=== PATIENT | female | born 1945 | race Caucasian/White ===

== ENCOUNTER → 2017-10-23 | Outpatient (CLI) | payer OTHER, MEDICARE ==
--- NOTE | 2017-10-23 16:32 | DIAGNOSTIC IMAGING REPORT ---
LEFT KNEE MRI HISTORY: LEFT KNEE PAIN COMPARISON STUDY: None. TECHNIQUE: Multiplanar multisequence MRI of the left knee was performed according to standard department protocol without the use of contrast. FINDINGS: Menisci: Best seen on coronal image 17 there is a small horizontal tear at the posterior root of the lateral meniscus. The medial meniscus is slightly extruded from the joint space and there is an oblique tear extending to the undersurface of the body and posterior horn. There is also complex tear at the posterior meniscal root of the medial meniscus. Ligaments: The ACL, PCL, MCL are intact. There is increased signal in thickening within the proximal LCL. No surrounding edema. This may represent an old partial tear. Extensor mechanism: The quadriceps tendon and patellar ligament are intact. Articular cartilage and bone: No fracture or dislocation. Marrow edema at the medial femoral condyle and a small amount of marrow edema at the medial tibial plateau. Mild cartilage thinning within the central weightbearing portions of the medial femoral condyle and medial tibial plateau. There is also fissures, fraying, and thinning within the patellar cartilage. Joint effusion: Small. Soft tissues: 5.3 x 2.5 x 1.1 cm popliteal cyst. Multiple varicosities seen within the knee. Mild subcutaneous edema throughout the knee. IMPRESSION: 1. Bilateral meniscal tears as described above. 2. Small joint effusion. 3. Suspect an old partial tear of the proximal LCL. 4. Marrow edema within the medial femoral condyle and medial tibial plateau which may be due to the degenerative change. 5. Additional findings as described above. Electronically signed by: Yoni Shaffer M.D. 10/23/2017 4:31 PM Dictated Date/Time: 10/23/2017 4:24 PM
== END | disposition home or self-care (01) ==
LOC: C.ULTRBC 14:56
PROVIDERS: ATTEND Family Medicine
DX: I83.899 Varicose veins of unspecified lower extremity with other complications (principal); R60.0 Localized edema; M25.562 Pain in left knee

== ENCOUNTER 2023-03-15 08:32 | Inpatient (IN) ==
--- NOTE | 2023-03-15 09:11 | Emergency Department Note ---
ED Provider Note History of Present Illness Chief Complaint: Leg Injury/Pain Stated Complaint: LEFT LEG PAIN Time Seen by Provider: 03/15/23 08:48 Source: patient and family ( - Charlie) Mode of arrival: ambulatory Limitations: no limitations This patient is a 77-year-old female who presents to the emergency department accompanied by her for evaluation of left leg pain. Patient has a long history of varicosities and has had multiple treatments for these, most recently she has seen a vein specialist in [place] where she spends the winter. Patient states that over the past few days the pain in her left leg has flared up. This does tend to happen with weather changes. She takes Tylenol and ibuprofen with some relief. No recent long travel, patient has been on estrogen replacement in the past but is no longer. She does not smoke. She has no history of DVT or PE. Patient does note some left-sided chest pain and states she has had this frequently in the past and was told it was muscular. It does tend to happen after too much activity and she admits she was picking up her great grandchildren a few days ago. Pain has been ongoing for the past few days. She denies any shortness of breath or fevers. Home Medications Medication Instructions Recorded Confirmed Type Prevagen 1 tab PO QAM 05/25/20 03/15/23 History amlodipine 2.5 mg tablet 2.5 mg PO PM 05/25/20 03/15/23 History metoprolol succinate 50 mg 50 mg PO PM 05/25/20 03/15/23 History tablet,extended release 24 hr Allergies Allergy/AdvReac Type Severity Reaction Status Date / Time No Known Allergies Allergy Mild Unverified 05/25/20 12:02 Past Med/Surg History Medical History (Updated 03/15/23 @ 16:29 by Kristin Amaro PA-C) Anxiety Dementia Diverticulosis Hypertension Left leg pain Osteoporosis Senile degeneration of brain Skin cancer ST segment depression 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 Social History Smoking Status: Never smoker Hx Alcohol Use: No Hx Substance Use: No Preferred Language: Czech Communication Ability: Effective 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 Beliefs That Will Affect Care: Judaism Current Living Situation: Spouse Other Information That Helps Us Care for You: No Feels Safe at Home: Yes Safety Concerns: Feels Safe At This Time Assistive Devices: Glasses Physical Exam Vital Signs Vital Signs - 24 hr 03/15/23 08:44 03/15/23 10:00 Temperature 36.4 C L Temperature Source Temporal Artery Scan Pulse Rate 81 Pulse Rate [Right Finger] 75 Pulse Rhythm [Right Finger] Regular Pulse Strength [Right Finger] Normal Respiratory Rate 18 18 Respiratory Effort / Characteristics Non-Labored Non-Labored Respiratory Depth Normal Normal Respiratory Pattern Regular Blood Pressure 133/83 Blood Pressure [Right Arm] 146/79 H Blood Pressure Mean 99 Blood Pressure Mean [Right Arm] 101 Blood Pressure Position Sitting Pulse Oximetry 97 98 Oxygen Delivery Method Room Air Room Air Sepsis Recent Fever Within 48 Hours No Sepsis New/Unexplained Change in Mental Status No Sepsis Action Taken by Nursing No Action Required VITALS: Vitals are noted on the nurse's note and reviewed by myself. GENERAL: This is a 77-year-old female, in no acute distress, well-developed well-nourished. EYES: Pupils equal round and reactive to light and accommodation. MOUTH: Mucous membranes moist. Tonsils are not enlarged. Pharynx without erythema or exudate. NECK: Supple without nuchal rigidity. HEART: Regular rate and rhythm without murmurs gallops or rubs. LUNGS: Clear to auscultation bilaterally without wheezes, rales or rhonchi. No retractions or accessory muscle use. ABDOMEN: Positive bowel sounds x 4. Soft, nontender to palpation. MUSCULOSKELETAL: Several small scars noted to the left lower extremity. There is tenderness to palpation of the left calf without obvious edema, erythema or palpable cord. NEURO: Patient was alert and oriented to person place and time. Distal sensation intact. Course Administered Medications Discontinued Medications Acetaminophen (Acetaminophen 500 Mg Tab) 1,000 mg PO NOW STA Stop: 03/15/23 09:51 Last Admin: 03/15/23 10:38 Dose: 1,000 mg Documented By: AP Medical Decision Making Differential Diagnosis DVT, musculoskeletal, infection, joint effusion, trauma, lymphedema, idiopathic, CHF, as well as other pathologies. Home Medications was personally reviewed by me Laboratory Data Attestation: I reviewed the patient's lab results. 03/15/23 09:20 03/15/23 09:20 Lab Results 03/15/23 03/15/23 Range/Units 09:20 09:20 WBC 4.78 L (4.8-10.8) K/ul RBC 3.60 L (4.20-5.40) M/uL Hgb 12.1 (12.0-16.0) g/dl Hct 36.3 L (37.0-47.0) % MCV 100.8 H (80.0-100.0) fL MCH 33.6 (25.0-34.0) pg MCHC 33.3 (32.0-36.0) g/dL RDW Std Deviation 52.1 H (36.4-46.3) fL RDW Coeff of Yoav 14.0 (11.5-14.5) % Plt Count 196 (130-400) K/uL MPV 10.3 (9.4-12.4) fL Immature Gran % (Auto) 0.2 % Neut % (Auto) 58.4 % Lymph % (Auto) 26.4 % [place] % (Auto) 11.5 % Eos % (Auto) 2.7 % Baso % (Auto) 0.8 % Neut # (Auto) 2.79 (1.40-6.50) K/uL Lymph # (Auto) 1.26 (1.2-3.4) K/uL [place] # (Auto) 0.55 (0.11-0.59) K/uL Eos # (Auto) 0.13 (0-0.50) K/uL Baso # (Auto) 0.04 (0-0.2) K/uL Immature Gran # (Auto) 0.01 (0.01-0.20) K/uL Sodium 138 (136-145) mmol/L Potassium 4.5 (3.5-5.1) mmol/L Chloride 104 (98-107) mmol/L Carbon Dioxide 28 (21-32) mmol/L Anion Gap 6 (3-11) BUN 17 (6-23) mg/dl Creatinine 1.00 (0.6-1.2) mg/dl Est Cr Clr Drug Dosing 36.4 ml/min Est GFR ( Amer) 62.9 ml/min Est GFR (Non-Af Amer) 54.3 ml/min BUN/Creatinine Ratio 17.0 (10-20) Glucose 95 (70-99(Fasting)) mg/dl Calcium 9.6 (8.6-10.3) mg/dl Total Bilirubin 0.5 (0.2-1.0) mg/dl AST 20 (13-39) U/L ALT 11 (7-52) U/L Alkaline Phosphatase 74 (34-104) U/L Troponin I High Sens 5.6 (0-14) pg/ml Total Protein 7.4 (6.0-8.3) gm/dl Albumin 4.2 (3.4-5.0) gm/dl Globulin 3.2 (2.5-4.0) gm/dl Albumin/Globulin Ratio 1.3 (0.9-2) Imaging Data Attestation: I personally reviewed and interpreted this imaging study as follows: Radiologist's Impression: Venous Doppler Study 03/15/23 09:04 LEFT LOWER EXTREMITY VENOUS DOPPLER HISTORY: Acute left leg pain left leg pain, hx varicosities COMPARISON STUDY: 06/01/2022 FINDINGS: There is normal compressibility, flow, and augmentation within the left lower extremity deep venous system. Limited exam secondary to lack of patient cooperation. Nonvisualization of the greater saphenous vein. IMPRESSION: No DVT within the left lower extremity. ACT 112: Negative or not required by law. Electronically signed by: Neri Chaudhary M.D. 03/15/2023 11:57 AM Chest X-Ray 03/15/23 09:05 XR chest 1V portable CLINICAL HISTORY: Atypical chest pain. COMPARISON STUDY: Chest radiograph May 25, 2020. FINDINGS: Lung volumes are normal. Lungs are clear. There is no pneumothorax or pleural effusion. Cardiac size is normal. Mediastinal contours are normal. There is no evidence for pulmonary edema. Several old left rib fractures are incident ally noted. IMPRESSION: No acute cardiopulmonary findings. ACT 112: Negative or not required by law. Electronically signed by: Frank Gardner M.D. 03/15/2023 9:53 AM ECG Data Attestation: I personally reviewed and interpreted this ECG as follows: Indication: + chest pain Rate (beats per minute): 69 Rhythm: + sinus rhythm ECG Intervals/blocks: + Left bundle branch block ECG [place]: + Left axis deviation ECG ST segments: + ST depression (lateral leads) Change: the following changes noted (worsening st depression lateral leads) MDM Narrative The patient is a 77-year-old female who presents today complaining of left leg pain and chest pain. Patient does have some dementia and it is unclear how acute these problems are. Ultrasound of the leg reveals no DVT. Labs revealed no leukocytosis, anemia or concerning electrolyte abnormalities. Troponin was not elevated. EKG was performed and does show ST depressions in the lateral lead which appear to be worse from a prior EKG. Troponin is not elevated. I did consult cardiology, who recommended observation for cardiac rule out given EKG changes. Patient was admitted to the [facility] service for further care. Impression Chest pain, Left leg pain, Abnormal EKG Discharge Plan Visit Data Chief Complaint: Leg Injury/Pain Stated Complaint: LEFT LEG PAIN ED Provider: Roberto Parmar ED Midlevel Provider: Kristin Amaro Discharge Problem: Chest pain, Left leg pain, Abnormal EKG Patient Disposition: Admitted As Inpatient Discharge Instructions Interventions: ED Discharge Assessment Last Done: 03/15/23 15:22
[2023-03-15 09:44] LABS: Basophils # (auto) 0.04 K/uL (0-0.2); Basophils % (auto) 0.8 %; Eosinophils # (auto) 0.13 K/uL (0-0.50); Eosinophils % (auto) 2.7 %; Hematocrit (blood only) 36.3 % (37.0-47.0); Hemoglobin 12.1 g/dl (12.0-16.0); Immature Granulocytes # (auto) 0.01 K/uL (0.01-0.20); Immature Granulocytes % (auto) 0.2 %; Lymphocytes # (auto) 1.26 K/uL (1.2-3.4); Lymphocytes % (auto) 26.4 %; Mean Corpuscular Hemoglobin 33.6 pg (25.0-34.0); Mean Corpuscular Hgb Conc 33.3 g/dL (32.0-36.0); Mean Corpuscular Volume 100.8 fL (80.0-100.0); Mean Platelet Volume 10.3 fL (9.4-12.4); Monocytes # (auto) 0.55 K/uL (0.11-0.59); Monocytes % (auto) 11.5 %; Neutrophils # (auto) 2.79 K/uL (1.40-6.50); Neutrophils % (auto) 58.4 %; Platelet Count 196 K/uL (130-400); RDW Standard Deviation 52.1 fL (36.4-46.3); White Blood Count 4.78 K/ul (4.8-10.8)
[2023-03-15] MEDS ORDERED: ACETAMINOPHEN 500 MG TAB PO STA (09:50)
--- NOTE | 2023-03-15 09:54 | XRay Report ---
XR chest 1V portable CLINICAL HISTORY: Atypical chest pain. COMPARISON STUDY: Chest radiograph May 25, 2020. FINDINGS: Lung volumes are normal. Lungs are clear. There is no pneumothorax or pleural effusion. Car diac size is normal. Mediastinal contours are normal. There is no evidence for pulmonary edema. Sever al old left rib fractures are incidentally noted. IMPRESSION: No acute cardiopulmonary findings. ACT 112: Negative or not required by law. Electronically signed by: Frank Gardner M.D. 03/15/2023 9:53 AM
[2023-03-15 09:59] LABS: Albumin Globulin Ratio 1.3 (0.9-2); Albumin Level 4.2 gm/dl (3.4-5.0); Bilirubin,Total 0.5 mg/dl (0.2-1.0); Calcium 9.6 mg/dl (8.6-10.3); Creatinine Clr Calc Pharmacy 36.4 ml/min; Est GFR (African American) 62.9 ml/min; Est GFR (Non-African American) 54.3 ml/min; Globulin 3.2 gm/dl (2.5-4.0); Potassium 4.5 mmol/L (3.5-5.1); Total Protein 7.4 gm/dl (6.0-8.3)
[2023-03-15 10:05] LABS: Troponin I High Sensitivity 5.6 pg/ml (0-14)
--- NOTE | 2023-03-15 11:58 | Ultrasound Report ---
LEFT LOWER EXTREMITY VENOUS DOPPLER HISTORY: Acute left leg pain left leg pain, hx varicosities COMPARISON STUDY: 06/01/2022 FINDINGS: There is normal compressibility, flow, and augmentation within the left lower extremity [place] p venous system. Limited exam secondary to lack of patient cooperation. Nonvisualization of the great er saphenous vein. IMPRESSION: No DVT within the left lower extremity. ACT 112: Negative or not required by law. Electronically signed by: Neri Chaudhary M.D. 03/15/2023 11:57 AM
[2023-03-15] MEDS ORDERED: MAGNESIUM HYDROXIDE SUSP 30 ML UDC PO PRN (13:56)
[2023-03-15] MEDS ORDERED: ONDANSETRON INJ 2 MG/ML 2 ML VIAL IV PRN (13:56)
--- NOTE | 2023-03-15 14:13 | History & Physical Report ---
Date of Service March 15, 2023 Assessment & Plan (1) Left leg pain: (2) Varicosities of leg: (3) ST segment depression: (4) Hypertension: (5) Anxiety: (6) Dementia: Plan 77 year old presents with Left leg pain. H/O Varicosities. Venous Doppler negative for DVT. Incidentally, new lateral and inferior ST depression noted on ECG as compared to previous study a few years back. Hemodynamically stable. Labs unremarkable. Trop negative. [place] spends half of the year in [place]; no ECHO on file. Will obtain ECHO for additional cardiology work up. Left leg pain: Varicosities of leg: Long standing history of varicosities with Ligation in past in [place]. Follows with Vein Specialist in [place] Venous Doppler negative for DVT of left lower extremity Non-toxic Weight bearing; PT/OT ECG ST Depression: Incidental finding on arrival to ED in Lateral leads Change from ECG from 2019 Troponin negative Obtain ECHO; no ECHO in EMR Link Lipid panel in AM Check Mg+ Labs otherwise unremarkable Repeat ECG in AM or PRN with symptoms Cards Consult for input Hypertension: Takes Amlodipine and Metoprolol;continue Moderate Dementia: Unsure Alzheimer's or Vascular Fast score: up to and including 5 Takes Prevagen; hold while here. Per , appears to be progressively worsening Disposition: PCP Dr. Cadet CODE STATUS: Full code VTE prophylaxis: Lovenox SQ I spent a total of 88 minutes coordinating, documenting, and providing care for this patient excluding time spent in the performance of separately billed services. All of the aforementioned completed while collaborating with the assigned attending physician for a full treatment plan. Please see their addendum for further details. History of Present Illness Chief Complaint: Left leg pain Primary Care Provider: Dr. Cadet Ms. Galvez is a 77-year-old female that presented to the [facility] ED today with complaints of left leg pain. Patient reports she follows with a vein specialist in [place] where she omer for a longstanding chronic history of varicosities. Reports having multiple treatments for this. Over the past few days her leg pain has worsened with minimal relief with OTC medications. ECG incidentally identified new lateral wall ST depression. No chest pain or palpitations noted. New finidings compared to previous ECG from a few years ago. Venous Doppler ultrasound of LLE without DVT within the left lower extremity. CXR negative for acute cardiopulmonary findings. Pt indicates that she has had a cardiac work up in [place] and was told everything was negative. She also had a mammogram and sonogram and was identified as muscular pain. No history of DVT or PE and no recent travel. CBC and BMP unremarkable, no transaminases, Troponin negative. No UTI via UA. Hemodynamically stable on room air. Other past medical history includes hypertension (Takes Amlodipine and Metoprolol) and dementia. Patient denies headache, dizziness, visual or auditory changes, shortness of breath, fevers or chills, abdominal pain, nausea, vomiting, diarrhea, urinary changes, recent falls or trauma. Patient will be admitted for further evaluation and management. Please see A/P for further details. Allergies Allergy/AdvReac Type Severity Reaction Status Date / Time No Known Allergies Allergy Mild Unverified 05/25/20 12:02 Home Medications Medication Instructions Recorded Confirmed Type Prevagen 1 tab PO QAM 05/25/20 03/15/23 History amlodipine 2.5 mg tablet 2.5 mg PO PM 05/25/20 03/15/23 History metoprolol succinate 50 mg 50 mg PO PM 05/25/20 03/15/23 History tablet,extended release 24 hr Past Med/Surg History Medical History (Updated 03/15/23 @ 16:45 by Roscoe Solano DO) Anxiety Dementia Diverticulosis Hypertension Left leg pain Osteoporosis Senile degeneration of brain Skin cancer ST segment depression 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 Social History Smoking Status: Never smoker Hx Alcohol Use: No Hx Substance Use: No Preferred Language: Sami Communication Ability: Effective Digital Performance Analyst Required: No Beliefs That Will Affect Care: Buddhist Current Living Situation: Spouse Other Information That Helps Us Care for You: No Feels Safe at Home: Yes Safety Concerns: Feels Safe At This Time Assistive Devices: Glasses Review of Systems Review of Systems: Neuro: (-) Falls, trauma, slurred speech HEENT: (-) MOORE, dizziness, dysphagia, visual or auditory changes CV: (-) CP, palpitations, swelling Resp: (-) SOB GI: (-) appetite changes, N/V/D, bowel changes (+) abdominal pain; generalized : (-) urinary changes Skin: (-) rashes Psych: (-) anxiety, depression Physical Exam Physical Exam: See Dr Corcoran's addendum for physical examination Results & Data Results & Data Vital Signs (Past 12 Hours) Vital Signs Temp Pulse Pulse Resp BP BP Pulse Ox 03/15/23 10:00 75 18 146/79 H 98 03/15/23 08:44 36.4 C L 81 18 133/83 97 O2 Del Method 03/15/23 10:00 Room Air 03/15/23 08:44 Room Air Laboratory Results Short CBC 03/15/23 Range/Units 09:20 WBC 4.78 L (4.8-10.8) K/ul Hgb 12.1 (12.0-16.0) g/dl Hct 36.3 L (37.0-47.0) % Plt Count 196 (130-400) K/uL BMP 03/15/23 09:20 Sodium 138 Potassium 4.5 Chloride 104 Carbon Dioxide 28 BUN 17 Creatinine 1.00 Glucose 95 Calcium 9.6 Liver Function 03/15/23 Range/Units 09:20 Total Bilirubin 0.5 (0.2-1.0) mg/dl AST 20 (13-39) U/L ALT 11 (7-52) U/L Alkaline Phosphatase 74 (34-104) U/L Albumin 4.2 (3.4-5.0) gm/dl Diagnostic Findings Venous Doppler Study 03/15/23 09:04 LEFT LOWER EXTREMITY VENOUS DOPPLER HISTORY: Acute left leg pain left leg pain, hx varicosities COMPARISON STUDY: 06/01/2022 FINDINGS: There is normal compressibility, flow, and augmentation within the left lower extremity deep venous system. Limited exam secondary to lack of patient cooperation. Nonvisualization of the greater saphenous vein. IMPRESSION: No DVT within the left lower extremity. ACT 112: Negative or not required by law. Electronically signed by: Neri Chaudhary M.D. 03/15/2023 11:57 AM Chest X-Ray 03/15/23 09:05 XR chest 1V portable CLINICAL HISTORY: Atypical chest pain. COMPARISON STUDY: Chest radiograph May 25, 2020. FINDINGS: Lung volumes are normal. Lungs are clear. There is no pneumothorax or pleural effusion. Cardiac size is normal. Mediastinal contours are normal. There is no evidence for pulmonary edema. Several old left rib fractures are incidentally noted. IMPRESSION: No acute cardiopulmonary findings. ACT 112: Negative or not required by law. Electronically signed by: Frank Gardner M.D. 03/15/2023 9:53 AM Code Status & VTE Plan VTE Prophylaxis Plan VTE Prophylaxis will be ordered: Yes Supervising Physician Co-Signing Physician Notes Ms. Galvez is a 77 year old female with pmhx (per chart, confirmed with ) of varicose veins, dementia, HTN, skin ca, osteoporosis, and anxiety. She presented d/t severe pain involving the left side. Here she was found to have ST depression on EKG. Per at bedside the patient has a lot of chronic pain affecting various areas of her body. Her legs are typically problematic d/t varicose veins. She has been treated with vein stripping and sclerotherapy. On the day prior to presentation she was complaining of pain involving the left side of her body including the entire lower extremity, abdomen, flank, chest, and upper extremity. Pt denies any recent illness, f/c/n/v, cough, cold, congestion, sob, and diarrhea. Her has not appreciated any change in appetite (has never been good), behavioral changes, change in energy level or ability to perform ADLs. Her states breast/chest pain has previously been determined to be muscular based on mammogram and US. He also states at some point in the past few years she had a negative cardiac workup in [place]. We explained to him and the patient that d/t the incidental finding of ST depression on EKG we feel she would benefit from a cardiac workup (things can change in a few years) and from seeing a linux systems analyst. # abnormal EKG: new when compared to prior EKG f/u echo, serial troponin (initial trop wnl) repeat EKG in am f/u lipid panel cardiology consulted, appreciate input, will defer further w/u to cardiology # Left sided pain: particularly affects the leg analgesia, PT/OT # HTN: suboptimally controlled likely pain and anxiety mediated continue amlodpine 2.5 mg po daily, metoprolol 50 mg po daily # anxiety: avoid benzos in elderly pt with dementia provide supportive care # dementia: continue supportive care, reoorient as needed primary team can offer trial of memantine or a cholinesterase inhibitor (donepezil, Galantamine, Rivastigmine) after discussing risks/benefits PE General: NAD, well nourished, non-toxic appearing Head: NC AT Eyes: anicteric sclera, no conjunctival injection Nose: normal, nares patent Mouth: MMM Neck: supple, trachea midline CV: RRR S1 S2 Pulm: CTA b/l Abd/GI: + BS, soft, NT, ND, no guarding Ext: mild b/l LE edema (baseline) MSK: normal bulk and tone Neuro: alert, moving all 4 extremities symmetrically Psych: pleasant mood and affect Skin: visible skin is warm, dry, and without rash. Pt not fully undressed for exam. Rest per attested note above (4) Hypertension Hypertension type: unspecified Qualified Code(s): I10 - Essential (primary) hypertension
--- NOTE | 2023-03-15 15:31 | Electrocardiogram Report ---
Test Reason : Blood Pressure : / mmHG Vent. Rate : 069 BPM Atrial Rate : 069 BPM P-R Int : 140 ms QRS Dur : 130 ms QT Int : 470 ms P-R-T Axes : 054 -54 080 degrees QTc Int : 503 ms Normal sinus rhythm Left axis deviation Left bundle branch block Abnormal ECG When compared with ECG of 25-MAY-2020 11:44, Nonspecific T wave abnormality now evident in Inferior leads Nonspecific T wave abnormality, worse in Lateral leads Confirmed by Albert Strong ([id number]) on 03/15/2023 3:31:11 PM Referred By: REFERRED SELF Confirmed By:Albert Strong
--- NOTE | 2023-03-15 16:46 | Cardiology Consultation ---
Date of Consultation March 15, 2023 Assessment & Plan (1) Chest pain: (2) LBBB (left bundle branch block): (3) Pericardial effusion: (4) Cardiomyopathy: Plan 77-year-old female presents emergency department with left leg discomfort with radiation to her left abdominal region and left chest. Discomfort somewhat reproducible with palpation. Initial cardiac enzymes undetectable despite 3 days of discomfort. Resting 2D transthoracic echocardiogram demonstrated trivial anterior loculated pericardial effusion without hemodynamic significance. Her left ventricular ejection fraction is mildly reduced most likely due to underlying left bundle branch block. Recommend addition of low- dose angiotensin receptor kayla, losartan 12.5 mg daily. Continue metoprolol succinate 50 mg daily. ECG on admission demonstrates a left bundle branch block. The ST changes are nondiagnostic in the setting of a chronic left bundle branch block. Recommend repeat cardiac enzymes x3 sets due to atypical chest discomfort. Repeat echocardiogram in 2 to 4 weeks for follow-up of trivial pericardial effusion. Assess TSH. History of Present Illness Reason for Consultation: New ST changes on ECG Requesting Physician: Jacklyn KASPER Attending Physician: Rayna Corcoran MD History of Present Illness 77-year-old female present to the emergency department with left leg pain. On review of systems patient also noted left-sided abdominal and chest discomfort. States it feels like the muscle on my left side is sore. Patient is somewhat of a poor historian. Notes hitting her head several months ago while snowboarding in [place]. She is unable to provide details of this injury. Currently denies any headache, focal weakness, or visual changes. Discomfort improved somewhat positionally. Denies exertional chest pain or unusual shortness of breath. Denies any pleuritic discomfort. Preliminary review of bedside 2D transthoracic echocardiogram demonstrates mild reduced LV systolic function with a ejection fraction of 45 to 50%. The septal wall motion is abnormal consistent with left bundle branch block. There is a trivial anterior pericardial effusion. Notes intermittent lower extremity burning attributed to venous insufficiency. Reports multiple venous ablations on the left side. Wears a left-sided compression stocking chronically. Venous duplex negative for DVT. 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 Social History Smoking Status: Never smoker Hx Alcohol Use: No Hx Substance Use: No Preferred Language: Italian Communication Ability: Effective Transitions Rn Care Coordinator Required: No Beliefs That Will Affect Care: Yarsanism Current Living Situation: Spouse Other Information That Helps Us Care for You: No Feels Safe at Home: Yes Safety Concerns: Feels Safe At This Time Assistive Devices: Glasses Review of Systems Review of Systems: All systems reviewed & are unremarkable except as noted in Subjective Physical Exam Constitutional: well nourished; no acute distress Respiratory: normal respiratory effort; no respiratory distress, no labored breathing and no retractions Auscultation: lungs clear to auscultation bilaterally; no crackles, no rales, no rhonchi and no wheezes Cardiovascular: Rate/Rhythm: regular rate and regular rhythm Heart Sounds: normal S1 and normal S2; no murmur Vessels: radial pulses present; no JVD and no carotid bruit Extremities: + edema Results & Data Vital Signs (Past 12 Hours) Vital Signs Temp Pulse Pulse Resp BP BP BP 03/15/23 15:30 36.5 C 73 18 146/71 H 03/15/23 15:13 76 16 159/92 H 03/15/23 10:00 75 18 146/79 H 03/15/23 08:44 36.4 C L 81 18 133/83 Pulse Ox O2 Del Method 03/15/23 15:30 93 Room Air 03/15/23 15:13 96 Room Air 03/15/23 10:00 98 Room Air 03/15/23 08:44 97 Room Air Laboratory Results Cardiac Enzymes 03/15/23 Range/Units 09:20 AST 20 (13-39) U/L Troponin I High Sens 5.6 (0-14) pg/ml CBC 03/15/23 Range/Units 09:20 WBC 4.78 L (4.8-10.8) K/ul RBC 3.60 L (4.20-5.40) M/uL Hgb 12.1 (12.0-16.0) g/dl Hct 36.3 L (37.0-47.0) % Plt Count 196 (130-400) K/uL Neut # (Auto) 2.79 (1.40-6.50) K/uL Lymph # (Auto) 1.26 (1.2-3.4) K/uL [place] # (Auto) 0.55 (0.11-0.59) K/uL Eos # (Auto) 0.13 (0-0.50) K/uL Baso # (Auto) 0.04 (0-0.2) K/uL Comprehensive Metabolic Panel 03/15/23 Range/Units 09:20 Sodium 138 (136-145) mmol/L Potassium 4.5 (3.5-5.1) mmol/L Chloride 104 (98-107) mmol/L Carbon Dioxide 28 (21-32) mmol/L BUN 17 (6-23) mg/dl Creatinine 1.00 (0.6-1.2) mg/dl Glucose 95 (70-99(Fasting)) mg/dl Calcium 9.6 (8.6-10.3) mg/dl AST 20 (13-39) U/L ALT 11 (7-52) U/L Alkaline Phosphatase 74 (34-104) U/L Total Protein 7.4 (6.0-8.3) gm/dl Albumin 4.2 (3.4-5.0) gm/dl Intake and Output 03/15/23 03/15/23 03/15/23 06:59 14:59 22:59 Other: Weight 48.9 kg 48.9 kg Weight Measurement Method Chair Scale Built in [facility] Patient Weight 03/16/23 06:59 Weight 48.9 kg
[2023-03-15] MEDS: LOSARTAN POTASSIUM 25 MG TAB PO SCH (18:08)
[2023-03-15] MEDS: ACETAMINOPHEN 325 MG TAB PO PRN (19:49)
[2023-03-15] MEDS ORDERED: amLODIPine BESYLATE 5 MG TAB PO SCH (21:00)
[2023-03-15] MEDS ORDERED: HEPARIN SOD 5,000 UNIT/0.5 ML VIAL SQ SCH (21:00)
[2023-03-15] MEDS ORDERED: METOPROLOL SUCC 50MG EXT REL TAB PO SCH (21:00)
[2023-03-15] MEDS ORDERED: OPTIRAY 320 100ml IV ONE (22:44)
--- NOTE | 2023-03-15 23:09 | CT Scan Report ---
CT SCAN OF THE ABDOMEN AND PELVIS WITH IV CONTRAST CLINICAL HISTORY: Left lower quadrant abdominal pain. COMPARISON STUDY: Abdominal CT dated 05/30/2021. TECHNIQUE: Following the IV administration of 93 cc of Optiray 320, CT scan of the abdomen and pelvi s is performed from the lung bases to the proximal femora. Images are reviewed in the axial, sagittal , and coronal planes. IV contrast was administered without complication. A dose lowering technique wa s utilized adhering to the principles of ALARA. CT DOSE: 372.78 mGy.cm FINDINGS: Lung bases: The heart is mildly enlarged and without pericardial effusion. There are coronary artery calcifications. The lung bases are clear noting bibasilar scarring/atelectasis. Liver: The contrast-enhanced liver is normal in size, contour, and attenuation. There is no intrahepa tic biliary ductal dilatation. The hepatic veins and portal veins are patent. Gallbladder: Unremarkable. Spleen: Normal in size and attenuation. Pancreas: Unremarkable. Adrenal glands: Unremarkable. Kidneys: The contrast enhanced kidneys are normal in size and without hydronephrosis. The kidneys enh ance symmetrically. Small hepatic cysts measure up to 1.6 cm. Additional subcentimeter cortical hypod ensities also likely represent cysts but are too small for definitive characterization. Abdominal vasculature: The abdominal aorta is normal in course and caliber noting moderate atheroscle rotic calcification. Bowel: There is moderate to advanced colonic diverticulosis without CT evidence of acute diverticulit is. No bowel obstruction is seen. Mild fecal retention is noted throughout the colon. The appendix is well-visualized and normal. Peritoneum: There is no intraperitoneal free air or abdominal ascites. There is a small fat-containin g umbilical hernia. Lymphadenopathy: None. Pelvic viscera: The bladder is mildly distended but otherwise normal in appearance. The uterus and ad nexa are normal as visualized. Skeletal structures: The skeletal structures are osteopenic. There is mild to moderate lumbosacral sp ondylosis. Degenerative change is noted in the sacroiliac joints. No lytic or blastic lesions are see n. IMPRESSION: 1. No acute infectious or inflammatory findings are identified in the abdomen or pelvis. 2. Colonic diverticulosis without CT evidence of acute diverticulitis. 3. Mild bladder distention. 4. Additional findings as above. ACT 112: Negative or not required by law. Electronically signed by: Gabriele Sheets M.D. 03/15/2023 11:06 PM
[2023-03-16] MEDS: ACETAMINOPHEN 325 MG TAB PO PRN ×2 (00:06→09:34)
[2023-03-16 00:35] LABS: Appearance Urine Clear (Clear); Bilirubin Urine Negative (Negative); Blood Urine Negative (Negative); Color Urine Yellow; Glucose Urine UA Negative (Negative); Ketones Urine Negative (Negative); Leukocyte Esterase Urine Negative (Negative); Nitrite Urine Negative (Negative); Protein Urine Negative (Negative); Specific Gravity Urine 1.023 (1.000-1.030); Urobilinogen Urine Negative (Negative); pH Urine 7.5 (4.5-7.5)
[2023-03-16 07:17] LABS: Hematocrit (blood only) 36.3 % (37.0-47.0); Mean Corpuscular Hemoglobin 33.3 pg (25.0-34.0); Mean Corpuscular Hgb Conc 33.1 g/dL (32.0-36.0); Mean Corpuscular Volume 100.8 fL (80.0-100.0); Mean Platelet Volume 10.2 fL (9.4-12.4); Platelet Count 188 K/uL (130-400); RDW Coefficient of Variation 13.9 % (11.5-14.5); RDW Standard Deviation 52.2 fL (36.4-46.3); White Blood Count 4.13 K/ul (4.8-10.8)
[2023-03-16 07:48] LABS: Albumin Globulin Ratio 1.3 (0.9-2); Bilirubin,Total 0.5 mg/dl (0.2-1.0); Calcium 9.3 mg/dl (8.6-10.3); Chol HDL Ratio 3.2 (0-5); Creatinine Clr Calc Pharmacy 33.4 ml/min; Est GFR (African American) 58.7 ml/min; Est GFR (Non-African American) 50.6 ml/min; Globulin 3.1 gm/dl (2.5-4.0); Magnesium 2.2 mg/dl (1.7-2.4); Phosphorus 3.2 mg/dl (2.5-4.9); Potassium 4.2 mmol/L (3.5-5.1); Total Protein 7.1 gm/dl (6.0-8.3)
[2023-03-16] MEDS: LOSARTAN POTASSIUM 25 MG TAB PO SCH (08:34)
[2023-03-16] MEDS ORDERED: ENOXAPARIN INJ 40 MG/0.4 ML SYR SQ SCH (09:00)
--- NOTE | 2023-03-16 12:47 | Cardiology Progress Note ---
Date of Service March 16, 2023 Assessment & Plan (1) Chest pain: (2) LBBB (left bundle branch block): (3) Pericardial effusion: (4) Cardiomyopathy: Plan 77-year-old female presents emergency department with left leg discomfort with radiation to her left abdominal region and left chest. Discomfort somewhat reproducible with palpation. Initial cardiac enzymes undetectable despite 3 days of discomfort. Resting 2D transthoracic echocardiogram demonstrated trivial anterior loculated pericardial effusion without hemodynamic significance. Her left ventricular ejection fraction is mildly reduced most likely due to underlying left bundle branch block. Recommend addition of low- dose angiotensin receptor kayla, losartan 12.5 mg daily. Continue metoprolol succinate 50 mg daily. ECG on admission demonstrates a left bundle branch block. The ST changes are nondiagnostic in the setting of a chronic left bundle branch block. Recommend repeat cardiac enzymes x3 sets due to atypical chest discomfort. Repeat echocardiogram in 2 to 4 weeks for follow-up of trivial pericardial effusion. Assess TSH. 03/16/2023 Issues addressed as follows 1. Atypical chest pain persistent tenderness chest wall and breast. Not typical angina or pleuropericarditis. Cardiac enzyme is negative 2. Left bundle branch block: Previously present on last observable EKG 05/31/2020. notes extensive cardiac evaluation in [place]. Given familial history of heart disease dyssynergic LV and apex on echocardiogram stress nuclear imaging recommended post hospital discharge 3. Hypertension: Would recommend as already begun losartan but to be increased to 25 mg a.m. and discontinue amlodipine given difficulties with leg pain and edema 4. Leg pain at site of prior varicosity ablation with mild focal tenderness no erythema or sign of infection Admission and Anticipated Discharge Date Admission Date: March 15, 2023 Subjective Patient seen and examined, chart, medications, telemetry reviewed. Patient examined in the presence of her who aids in history. Patient only fair historian given underlying dementia issues Still complains of tenderness to palpation of the left breast notes prior fall and injury. Main complaint is persistent pain in her left leg EKGs on admission noted left bundle branch block but unchanged from prior study of 2019 notes extensive cardiac evaluation while wintering in [place] unrevealing Physical Exam Constitutional: well nourished; no acute distress Respiratory: normal respiratory effort; no respiratory distress, no labored breathing and no retractions Auscultation: lungs clear to auscultation bilaterally; no crackles, no rales, no rhonchi and no wheezes Cardiovascular: Rate/Rhythm: regular rate and regular rhythm Heart Sounds: normal S1 and normal S2; no murmur Vessels: radial pulses present; no JVD and no carotid bruit Extremities: + edema Chest (Breasts): Additional Comments: Left chest and breast tender to palpation Gastrointestinal (Abdomen): normal bowel sounds, soft, nontender, no hepatosplenomegaly Musculoskeletal: Left leg and torres tender to palpation at site of prior varicosity ablation. Compression stocking in place Results & Data Vital Signs (Past 12 Hours) Vital Signs Temp Pulse Pulse Resp BP Pulse Ox O2 Del Method 03/16/23 11:16 36.4 C L 80 17 127/76 97 Room Air 03/16/23 07:59 36.6 C 69 17 123/70 94 Room Air 03/16/23 07:00 64 03/16/23 03:59 36.6 C 74 18 113/64 94 Room Air Laboratory Results Laboratory Results - last 24 hr 03/15/23 03/15/23 03/16/23 17:01 Unknown 00:00 WBC RBC Hgb Hct MCV MCH MCHC RDW Std Deviation RDW Coeff of Yoav Plt Count MPV ESR Sodium Potassium Chloride Carbon Dioxide Anion Gap BUN Creatinine Est Cr Clr Drug Dosing Est GFR ( Amer) Est GFR (Non-Af Amer) BUN/Creatinine Ratio Glucose Calcium Phosphorus Magnesium Total Bilirubin AST ALT Alkaline Phosphatase Total Protein Albumin Globulin Albumin/Globulin Ratio Triglycerides Cholesterol LDL Cholesterol, Calc VLDL Cholesterol, Calc HDL Cholesterol Cholesterol/HDL Ratio TSH 2.258 Urine Color Yellow Urine Appearance Clear Urine pH 7.5 Ur Specific [place] 1.023 Urine Protein Negative Urine Glucose (UA) Negative Urine Ketones Negative Urine Blood Negative Urine Nitrite Negative Urine Bilirubin Negative Urine Urobilinogen Negative Ur Leukocyte Esterase Negative SARS-CoV-2, RNA, NAAT NEGATIVE 03/16/23 03/16/23 03/16/23 06:29 06:29 06:29 WBC 4.13 L RBC 3.60 L Hgb 12.0 Hct 36.3 L MCV 100.8 H MCH 33.3 MCHC 33.1 RDW Std Deviation 52.2 H RDW Coeff of Yoav 13.9 Plt Count 188 MPV 10.2 ESR 13 Sodium 138 Potassium 4.2 Chloride 105 Carbon Dioxide 28 Anion Gap 5 BUN 17 Creatinine 1.06 Est Cr Clr Drug Dosing 33.4 Est GFR ( Amer) 58.7 Est GFR (Non-Af Amer) 50.6 BUN/Creatinine Ratio 16.0 Glucose 92 Calcium 9.3 Phosphorus 3.2 Magnesium 2.2 Total Bilirubin 0.5 AST 18 ALT 10 Alkaline Phosphatase 71 Total Protein 7.1 Albumin 4.0 Globulin 3.1 Albumin/Globulin Ratio 1.3 Triglycerides 127 Cholesterol 236 H LDL Cholesterol, Calc 138 VLDL Cholesterol, Calc 25 HDL Cholesterol 73 Cholesterol/HDL Ratio 3.2 TSH Urine Color Urine Appearance Urine pH Ur Specific [place] Urine Protein Urine Glucose (UA) Urine Ketones Urine Blood Urine Nitrite Urine Bilirubin Urine Urobilinogen Ur Leukocyte Esterase SARS-CoV-2, RNA, NAAT
--- NOTE | 2023-03-16 12:49 | Communication Note ---
Date of Service: March 16, 2023 By CMS guidelines, a determination that the admission or continued stay is not medically necessary has been made by a member of the UR committee and a physi lilliana for this hospital stay, therefore a Code 44 will be completed and the Inpatient admission will be changed to outpatient.
--- NOTE | 2023-03-16 13:24 | Communication Note ---
Date of Service: March 16, 2023 By CMS guidelines, a determination that the admission or continued stay is not medically necessary has been made by a member of the Utilization Review commi ttee and a physician for this hospital stay. Therefore, a Code 44 will be completed and the inpatient admission will be changed to outpatient. Mary Loja DO
--- NOTE | 2023-03-16 17:51 | Electrocardiogram Report ---
Test Reason : Blood Pressure : / mmHG Vent. Rate : 073 BPM Atrial Rate : 073 BPM P-R Int : 144 ms QRS Dur : 130 ms QT Int : 472 ms P-R-T Axes : 051 -41 062 degrees QTc Int : 519 ms Normal sinus rhythm with sinus arrhythmia Left axis deviation Left bundle branch block Abnormal ECG When compared with ECG of 15-MAR-2023 09:21, No significant change was found Confirmed by Sean Rapp ([id number]) on 03/16/2023 5:51:26 PM Referred By: REFERRED SELF Confirmed By:Sean Rapp
--- NOTE | 2023-03-17 17:48 | Discharge Summary ---
Date of Service March 17, 2023 Admission HPI Per Admitting Provider Ms. Galvez is a 77-year-old female that presented to the [facility] ED today with complaints of left leg pain. Patient reports she follows with a vein specialist in [place] where she omer for a longstanding chronic history of varicosities. Reports having multiple treatments for this. Over the past few days her leg pain has worsened with minimal relief with OTC medications. ECG incidentally identified new lateral wall ST depression. No chest pain or palpitations noted. New finidings compared to previous ECG from a few years ago. Venous Doppler ultrasound of LLE without DVT within the left lower extr emity. CXR negative for acute cardiopulmonary findings. Pt indicates that she has had a cardiac work up in [place] and was told everything was negative. She also had a mammogram and sonogram and was identified as muscular pain. No history of DVT or PE and no recent travel. CBC and BMP unremarkable, no transaminases, Troponin negative. No UTI via UA. Hemodynamically stable on room air. Other past medical history includes hypertension (Takes Amlodipine and Metoprolol) and dementia. Patient denies headache, dizziness, visual or auditory changes, shortness of breath, fevers or chills, abdominal pain, nausea, vomiting, diarrhea, urinary changes, recent falls or trauma. Patient will be admitted for further evaluation and management. Please see A/P for further details. Principal Diagnosis Left leg pain Incidental finding of LBBB Discharge Exam Patient was dressed and ready for discharge upon my arrival into room. She feels well. No further leg cramps CV- regular rate and rhythm, no murmurs/rubs Pulm- breathing comfortably on room air, no wheezing/rhonchi LE- wearing compression stockings Discharge Data Allergies Allergy/AdvReac Type Severity Reaction Status Date / Time No Known Allergies Allergy Mild Unverified 05/25/20 12:02 Consultations 03/15/23 13:56 ED Decision to Admit Stat 03/15/23 15:00 Consult Cardiology Routine Ordered Studies 03/15/23 09:04 US venous doppler LE LT Stat 03/15/23 21:53 CT abd pelvis IV con only Routine Hospital Course (1) Left leg pain: (2) Varicosities of leg: (3) ST segment depression: (4) Hypertension: (5) Anxiety: (6) Dementia: Plan 77 year old presents with Left leg pain. H/O Varicosities. Venous Doppler negative for DVT. Incidentally, new lateral and inferior ST depression noted on ECG as compared to previous study a few years back. Hemodynamically stable. Labs unremarkable. Trop negative. [place] spends half of the year in [place]; no ECHO on file. Will obtain ECHO for additional cardiology work up. Left leg pain: Varicosities of leg: Long standing history of varicosities with Ligation in past in [place]. Follows with Vein Specialist in [place] Venous Doppler negative for DVT of left lower extremity ECG ST Depression: Incidental finding on arrival to ED in Lateral leads Troponin negative Echo shows mildly reduced LV (per report from Cardiology) which may be due to LBBB. She will need to follow up with Cardiology after discharge for a repeat TTE in 2-4 weeks as well as a stress test. Disposition: PCP Dr. Cadet CODE STATUS: Full code VTE prophylaxis: Lovenox SQ Total Time Total Time Spent Total Time Spent (In Minutes): 35 Discharge Plan Discharge Items Patient Disposition: Home - Self-Care Reason For Visit: LEFT LEG PAIN Discharge Diagnosis: Left leg pain Incidental finding of LBBB Condition on Discharge: Good Activity: Resume your previous activity Non-emergency contact: Primary Care Provider and [employer] Consultant Call non-emergency contact if: you have any medication questions Follow-up/Referrals: Roscoe Solano DO [[employer]ant] - PCP,NO [Primary Care Provider] - Diet: Heart Healthy Addtl Attending Provider Instructions: You came to the hospital for left leg cramping. Ultrasound here was negative for clot You had an EKG which incidentally showed a LBBB (conduction abnormality). It is unclear if you have a history of this Your TTE (echo) which is an ultrasound of your heart shows slightly reduced and you were started on losartan 12.5mg daily to help protect your heart. You should still continue your metoprolol XL 25mg daily as you have been doing Please follow up with [facility] for a repeat TTE/echo in 2-4 weeks and a stress test Please keep a log book of your blood pressure. If your blood pressure is too low on losartan (new), metoprolol, and amlodipine --> you can stop the amlodipine. Please follow up with your primary care doctor in 2 weeks to review your blood pressure readings Pending Studies at Discharge: Yes Studies:: Final report of TTE is pending Stand-Alone Forms: My [facility], Smoking Cessation Medications and DC Order Prescriptions: New losartan 25 mg Tablet 12.5 mg PO QAM 30 Days Qty: 15 0RF Continued metoprolol succinate 50 mg tablet extended release 24 hr 50 mg PO PM amlodipine 2.5 mg tablet 2.5 mg PO PM Prevagen 1 tab PO QAM Discharge Orders: Discharge Order (Routine); Ordered 03/16/23 Ordered By: Ngozi Morris Admission Data Admit Date/Time: 03/15/23 13:56 Attending Provider: Ngozi Morris Admit Provider: Rayna Corcoran Primary Care Provider: PCP,NO Other Providers: Rayna Corcoran ; Roscoe Solano Other Interventions: Discharge Summary Assessment (RN) Last Done: 03/16/23 13:00
== END 2023-03-16 13:32 | disposition home or self-care (01) | DRG 300 ==
LOC: ED 08:32 → INTOOBSV 13:56 → 2N 13:56 → OBSVTOIN 13:56 → SUATTDRO 13:56 → 2N 15:22

== ENCOUNTER 2025-05-17 15:14 | Observation (INO) ==
[2025-05-17 16:02] LABS: Hematocrit (blood only) 34.9 % (37.0-47.0); Hemoglobin 11.6 g/dl (12.0-16.0); Immature Granulocytes # (auto) 0.03 K/uL (0.01-0.20); Immature Granulocytes % (auto) 0.4 %; Mean Corpuscular Hemoglobin 33.7 pg (25.0-34.0); Mean Corpuscular Volume 101.5 fL (80.0-100.0); Platelet Count 189 K/uL (130-400); RDW Standard Deviation 51.5 fL (36.4-46.3); Red Blood Count 3.44 M/uL (4.20-5.40); White Blood Count 6.77 K/ul (4.8-10.8)
--- NOTE | 2025-05-17 16:17 | XRay Report ---
Technique: A frontal view of the chest was obtained Comparison is made to the prior examination dated 03/15/2023 Findings: There are mild bilateral lung base opacities, likely due to atelectasis. The heart size is within normal limits. No pleural effusion or pneumothorax is seen. There is a possible right upper lobe nodule and there are irregular nodular opacities in the lung apices There is an old healed fracture of the right seventh rib and there are additional suspected old left rib fractures Impression: 1. Bilateral lung base atelectasis 2. Suspected pulmonary nodules, indeterminate in nature. Chest CT could be considered for further evaluation ACT 112: Positive. There are findings on this exam that require communication between the performing entity and the patient following Patient Test Result Information Act ([place] ACT 112) guidelines. Electronically signed by Rg Mayorga 05-17-2025 4:16 PM
[2025-05-17 16:18] LABS: Alanine Aminotransferase 10 U/L (7-52); Albumin Globulin Ratio 1.3 (0.9-2); Alkaline Phosphatase 100 U/L (34-104); Anion Gap 8 (3-11); Bilirubin,Total 0.4 mg/dl (0.2-1.0); Blood Urea Nitrogen 30 mg/dl (6-23); Calcium 9.5 mg/dl (8.6-10.3); Carbon Dioxide 28 mmol/L (21-32); Chloride 101 mmol/L (98-107); Globulin 3.1 gm/dl (2.5-4.0); Glucose 96 mg/dl (70-99(Fasting)); Magnesium 2.0 mg/dl (1.7-2.4); Potassium 4.1 mmol/L (3.5-5.1); Sodium 137 mmol/L (136-145); Total Protein 7.2 gm/dl (6.0-8.3)
--- NOTE | 2025-05-17 16:23 | Emergency Department Note ---
Impression & Plan Rib fractures, Dementia, Fall from standing, Compression fracture of thoracic vertebra ED Provider Note NAME: BRIAN FERREIRA AGE: 79 SEX: F : 1945 ARRIVES VIA: Walk-In INFORMANT: Patient ED PROVIDER(S): Tom Garcia MD CHIEF COMPLAINT: Left chest pain, fall PLAN: Disposition: Admit MEDICAL DECISION MAKING: The patient is a pleasant 79-year-old woman with a past medical history of dementia, chronic back pain who presents to the emergency department via walk-in accompanied by her for evaluation of left chest/back pain in the setting of having a fall today prior to arrival when she tripped on her slippers. She denies any head strike. Denies LOC. She is not on anticoagulation. They deny any recent illness including fevers, chills, cough, congestion, GI or symptoms. They report that the patient does have scheduled spine injections tomorrow for her chronic back pain. On evaluation patient is uncomfortable no distress, afebrile with stable vital signs. Head is atraumatic. She has no midline CTL spine tenderness with patient or step-offs. She has mild tenderness of the left lateral chest wall without bony crepitus or discoloration. Of note, the patient did arrive to emergency department during time of high volume, acuity and prolonged emergency department waiting times. Critical pathways initiated from triage. Initial chest x-ray does not demonstrate overt new rib fractures. WBC, platelets within normal limits. H/H approximate to prior. Chemistry without metabolic acidosis. Creatinine 1.47, slightly increased from a year ago and consistent with patient's clinically dry appearance. LFTs unremarkable. CT of the head, C and T-spine as well as the chest were performed. CT of the head and C-spine negative for acute abnormalities. CT of the chest demonstrates nondisplaced left 8th and 9th rib fractures. CT of the thoracic spine demonstrates prior compression fracture of T8 vertebral body and compression fracture of the endplate of T8 10 without high-grade compression fracture or retropulsion. Patient treated with IV APAP, IV morphine x 2 as well as IV hydration and Zofran. She did report some improvement in her symptoms but still with significant pain. She does agree with plan for admission for further management. [facility]. Further management per admitting team. - Triage Nursing notes reviewed and agree them. Prior/external medical records reviewed Vital Signs: reviewed Differential diagnosis: Fracture, dislocation, contusion, intra-abdominal, pneumothorax, intrathoracic, intracranial, neurologic, compartment syndrome, rhabdomyolysis, as well as other pathologies. ER treatment provided: See below. Diagnostics interpreted by me: Cardiac Monitoring: An order for continuous cardiac monitoring was placed and demonstrated normal sinus rhythm, 65 bpm, no ectopy. Laboratory studies: See below Imaging studies: See below Consultation(s): Case was [facility] for [facility]. HPI: Per MDM. ROS: See above HPI for pertinent positives & negatives. A total of 10 systems reviewed and were otherwise negative. VITALS:See Below PHYSICAL EXAMINATION: Primary Survey Airway: Intact Breathing: Normal, breath sounds equal bilaterally Circulation: Skin warm, distal pulses 2+, capillary refill less than 2 seconds Disability Pupils: Equal and reactive to light. GCS: 15, E = 5 V=5 M= 5 Motor Function: Moves all extremities. Sensory: No deficits Secondary Survey GEN: Well developed and well-nourished HEAD: Normocephalic, atraumatic. EYES: Pupils round reactive to light, conjunctiva clear, extraocular movements intact, no raccoons eyes ENT: No fluid in external acoustic canals, no hemotympanum, no bernabe's sign, nares patent, no septal hematoma, oropharynx clear NECK: No JVD, midline trachea, No midline tenderness to palpation or step-offs. HEART: Regular rate and rhythm LUNGS: Clear to auscultation bilaterally. CHEST: Mild tenderness of the left lateral chest wall without bony crepitus or discoloration. ABD: No Shepherd-Woodson's or Farhad's sign, soft, non-tender, no rebound or guarding, PELVIS: Stable to rock BACK: No step offs or deformities, T-L spine non tender EXT: 2+ global pulses, moving all extremities well, +5/5 muscle strength globally NEURO: Normal sensorium. Cranial nerves II-XII grossly intact. 5/5 strength and SILT x 4 extremities. 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 Left leg pain (Acute) Anxiety (Acute) Hypertension (Chronic) Altered mental status (Acute) Near syncope (Acute) Medical History Chest pain ST segment depression Varicose veins of both lower extremities Osteoporosis Diverticulosis Skin cancer Social History Smoking Status: Never smoker Second Hand Exposure: No; Do You Dip or Chew Tobacco: No; Tobacco Cessation Education Requested by Patient: No Hx Alcohol Use: No Hx Substance Use: No Preferred Language: Haitian Communication Ability: Effective Incident Manager Required: No Beliefs That Will Affect Care: Episcopal Episcopal Beliefs: Scientology. Current Living Situation: Spouse Other Information That Helps Us Care for You: No Feels Safe at Home: Yes Safety Concerns: Feels Safe At This Time Assistive Devices: Cane, Glasses, Hospital Bed, Oxygen - Continuous and Walker Assistive Devices Comment: Oxygen just started on admission. Patient does not use at home. Allergies Allergies Allergy/AdvReac Type Severity Reaction Status Date / Time oxycodone AdvReac Intermediate Hallucinati Verified 05/17/25 20:24 Home Meds Home Medications Medication Instructions Recorded Confirmed amlodipine 2.5 mg tablet 2.5 mg PO PM 05/25/20 05/17/25 aspirin 325 mg tablet 650 mg PO DAILY PRN Pain 05/17/25 05/17/25 cranberry fruit concentrate 250 mg 250 mg PO DAILY 05/17/25 05/17/25 chewable tablet (Azo Cranberry) [id number]-acetaminophen 7.5 15 ml PO HS PRN Sleep 05/17/25 05/17/25 mg-60 [id number] oral liqd gabapentin 300 mg capsule 300 mg PO HS 05/17/25 05/17/25 Previous Rx's Medication Instructions Recorded tramadol 50 mg tablet 50 mg PO Q12H PRN pain #12 tabs 06/18/24 Results & Data (ED) Vital Signs Vital Signs - 24 hr 05/17/25 15:21 05/17/25 18:29 05/17/25 18:30 Temperature 36.7 C Temperature Source Temporal Artery Scan Pulse Rate 79 65 67 Pulse Rate from SpO2 Sensor 67 Respiratory Rate 18 19 Respiratory Effort / Characteristics Non-Labored Spontaneous Respiratory Depth Normal Blood Pressure 138/79 163/81 H Blood Pressure Mean 98 108 Blood Pressure Position Sitting Pulse Oximetry 96 97 Oxygen Delivery Method Room Air Room Air Sepsis Recent Fever Within 48 Hours No Sepsis New/Unexplained Change in Mental Status No Sepsis Action Taken by Nursing No Action Required 05/17/25 18:40 05/17/25 18:40 05/17/25 18:42 Temperature Temperature Source Pulse Rate 69 71 Pulse Rate from SpO2 Sensor 70 Respiratory Rate 19 17 Respiratory Effort / Characteristics Respiratory Depth Blood Pressure 163/81 H 163/81 H Blood Pressure Mean 102 102 Blood Pressure Position Pulse Oximetry 96 97 Oxygen Delivery Method Sepsis Recent Fever Within 48 Hours Sepsis New/Unexplained Change in Mental Status Sepsis Action Taken by Nursing 05/17/25 19:00 05/17/25 19:12 Temperature Temperature Source Pulse Rate 72 Pulse Rate from SpO2 Sensor 73 Respiratory Rate 15 Respiratory Effort / Characteristics Respiratory Depth Blood Pressure 148/84 H Blood Pressure Mean 90 Blood Pressure Position Pulse Oximetry 98 Oxygen Delivery Method Sepsis Recent Fever Within 48 Hours Sepsis New/Unexplained Change in Mental Status Sepsis Action Taken by Nursing Laboratory Data Attestation: I reviewed the patient's lab results. 05/17/25 15:42 05/17/25 15:42 Lab Results 05/17/25 Range/Units 15:42 WBC 6.77 (4.8-10.8) K/ul RBC 3.44 L (4.20-5.40) M/uL Hgb 11.6 L (12.0-16.0) g/dl Hct 34.9 L (37.0-47.0) % MCV 101.5 H (80.0-100.0) fL MCH 33.7 (25.0-34.0) pg MCHC 33.2 (32.0-36.0) g/dL RDW Std Deviation 51.5 H (36.4-46.3) fL RDW Coeff of Yoav 13.8 (11.5-14.5) % Plt Count 189 (130-400) K/uL MPV 10.0 (9.4-12.4) fL Immature Gran % (Auto) 0.4 % Neut % (Auto) 71.4 % Lymph % (Auto) 15.1 % Campbell % (Auto) 9.7 % Eos % (Auto) 2.8 % Baso % (Auto) 0.6 % Neut # (Auto) 4.83 (1.40-6.50) K/uL Lymph # (Auto) 1.02 L (1.20-3.40) K/uL Campbell # (Auto) 0.66 H (0.11-0.59) K/uL Eos # (Auto) 0.19 (0.00-0.50) K/uL Baso # (Auto) 0.04 (0.00-0.20) K/uL Immature Gran # (Auto) 0.03 (0.01-0.20) K/uL Sodium 137 (136-145) mmol/L Potassium 4.1 (3.5-5.1) mmol/L Chloride 101 (98-107) mmol/L Carbon Dioxide 28 (21-32) mmol/L Anion Gap 8 (3-11) BUN 30 H (6-23) mg/dl Creatinine 1.47 H (0.6-1.2) mg/dl Est Cr Clr Drug Dosing Not Reportable eGFR 36.09 BUN/Creatinine Ratio 20.4 H (10-20) Glucose 96 (70-99(Fasting)) mg/dl Calcium 9.5 (8.6-10.3) mg/dl Magnesium 2.0 (1.7-2.4) mg/dl Total Bilirubin 0.4 (0.2-1.0) mg/dl AST 19 (13-39) U/L ALT 10 (7-52) U/L Alkaline Phosphatase 100 (34-104) U/L Total Protein 7.2 (6.0-8.3) gm/dl Albumin 4.1 (3.4-5.0) gm/dl Globulin 3.1 (2.5-4.0) gm/dl Albumin/Globulin Ratio 1.3 (0.9-2) Administered Medications Hydrocodone Bitart/Acetaminophen (Hydrocodone/Acetamophen 5/325mg Tab) 1 tab PO QID PRN PRN Reason: Pain Stop: 05/31/25 20:28 Last Admin: 05/18/25 00:45 Dose: 1 tab Documented By: Admin: 05/17/25 21:07 Dose: 1 tab Documented By: PAXTON Hydromorphone HCl (Hydromorphone Inj 0.5 Mg/0.5 Ml Syr) 0.25 mg IV Q4H PRN PRN Reason: Pain Stop: 05/31/25 20:28 Last Admin: 05/17/25 21:38 Dose: 0.25 mg Documented By: ESTEBAN Hydroxyzine HCl (Hydroxyzine Hcl 10 Mg Tab) 10 mg PO QID PRN PRN Reason: Anxiety Stop: 06/16/25 20:33 Last Admin: 05/18/25 01:45 Dose: 10 mg Documented By: PARISH Sodium Chloride (Nss) 1,000 mls @ 60 mls/hr IV .[id number] ONE Stop: 05/18/25 13:11 Last Admin: 05/17/25 21:09 Dose: 60 mls/hr Documented By: PAXTON Melatonin (Melatonin 3 Mg Tab) 3 mg PO HS PRN PRN Reason: Sleep Stop: 06/16/25 20:33 Last Admin: 05/17/25 23:25 Dose: 3 mg Documented By: PARISH Discontinued Medications Amlodipine Besylate (Amlodipine Besylate 5 Mg Tab) 2.5 mg PO ONE STA Stop: 05/17/25 20:52 Last Admin: 05/17/25 21:08 Dose: 2.5 mg Documented By: PAXTON Gabapentin (Gabapentin 300 Mg Cap) 300 mg PO NOW ONE Stop: 05/17/25 21:01 Last Admin: 05/17/25 21:08 Dose: 300 mg Documented By: PAXTON Acetaminophen (Ofirmev) 1,000 mg in 100 mls @ 400 mls/hr IV NOW STA Stop: 05/17/25 16:55 Last Infusion: 05/17/25 17:47 Dose: Infused Documented By: Admin: 05/17/25 16:53 Dose: 400 mls/hr Documented By: PAXTON Sodium Chloride (Nss) 500 mls @ 999 mls/hr IV .Q31M ONE Stop: 05/17/25 17:12 Last Infusion: 05/17/25 17:47 Dose: Infused Documented By: Admin: 05/17/25 16:56 Dose: 999 mls/hr Documented By: PAXTON Lidocaine (Lidocaine 5% 1 Patch) 1 patch TD NOW STA Stop: 05/17/25 18:52 Last Admin: 05/17/25 19:06 Dose: 1 patch Documented By: ANT Miscellaneous (Remove Lidoderm Patch) 1 each N/A DAILY@2100 OLGA Stop: 06/16/25 20:59 Last Admin: 05/17/25 20:01 Dose: Not Given Documented By: PAXTON Morphine Sulfate (Morphine Sulfate 4 Mg/Ml 1 Ml Carp\Vial) 4 mg IV NOW STA Stop: 05/17/25 16:42 Last Admin: 05/17/25 16:52 Dose: 4 mg Documented By: BLShannon Morphine Sulfate (Morphine Sulfate 4 Mg/Ml 1 Ml Carp\Vial) 4 mg IV NOW STA Stop: 05/17/25 18:52 Last Admin: 05/17/25 19:06 Dose: 4 mg Documented By: ANT Ondansetron HCl (Ondansetron Inj 2 Mg/Ml 2 Ml Vial) 4 mg IV NOW STA Stop: 05/17/25 16:42 Last Admin: 05/17/25 16:52 Dose: 4 mg Documented By: PAXTON Imaging Data Radiologist's Impression: Cervical Spine CT 05/17/25 16:41 EXAM: CT cervical spine CLINICAL HISTORY: Tripped over her slippers fell backwards. TECHNIQUE: Contiguous axial images were obtained through the cervical spine without the use of intravenous contrast. Sagittal and coronal reformations are supplied. PRIORS: 02/13/2022 FINDINGS: Motion artifact greatly degrades image quality. Moderate osseous demineralization is noted. Lordotic straightening is noted. Mild anterolisthesis of C3 on C4, unchanged. No acute cervical spine fracture or facet dislocation. Moderate facet hypertrophic changes noted diffusely. Moderate degenerative change present at C5-C6 and C6-C7 with endplate changes, progressed. No prevertebral soft tissue swelling. Visualized trachea is patent. IMPRESSION: No CT evidence of an acute osseous abnormality. Electronically signed by Lindsey Allen 05-17-2025 6:[address] 05/17/25 16:41 EXAMINATION: Chest CT without CLINICAL HISTORY: Fall TECHNIQUE: Contiguous axial images were obtained through the chest without the use of intravenous contrast. Sagittal and coronal reformations are supplied. FINDINGS: Motion artifact greatly degrades image quality. Moderate osseous demineralization noted. No sternal fracture. The clavicles, scapula, are morphologically unremarkable. Oblique nondisplaced fracture of the 8th and 9th posterolateral left ribs present. Mild adjacent chest wall swelling with no large hematoma. No pneumothorax. Mild hypoventilatory changes present. No hemothorax or retrosternal hematoma. Ascending aorta is enlarged, measuring approximately 3.8 cm on this noncontrast study. Heart size is enlarged. Trachea and mainstem bronchi are patent. Thoracic spine dictated under separate heading. IMPRESSION: Nondisplaced left posterolateral 8th and 9th rib fractures with mild soft tissue swelling and no pneumothorax. Electronically signed by Lindsey Allen 05-17-2025 6:[address] 05/17/25 16:41 Clinical History: Injury Technique: Axial computed tomography images were obtained of the brain without intravenous contrast. Findings: There is diffuse cerebral atrophy, within expected limits for the patient's age. Areas of decreased attenuation are seen within the periventricular white matter, likely representing chronic small vessel ischemic disease. There is no definite sign of acute or old infarction. No intracranial hemorrhage is evident. No definite mass lesion is seen on this noncontrast examination. There is no midline shift or other form of herniation. No hydrocephalus is seen. No fracture is identified. The orbits and the visualized paranasal sinuses appear unremarkable. The mastoid air cells appear clear. Impression: 1. Cerebral atrophy and chronic small vessel ischemic disease 2. Otherwise unremarkable noncontrast CT of the brain Electronically signed by Rg Mayorga 05-17-2025 5:[address] 05/17/25 16:41 EXAMINATION: CT thoracic spine W/O con CLINICAL HISTORY: Fall, left-sided pain PRIORS: None TECHNIQUE: Contiguous axial images were obtained through the, thoracic spine without the use of intravenous contrast. Sagittal and coronal reformations are supplied. FINDINGS: Moderate osseous demineralization and kyphosis is present. A moderate compression fracture present at T8 with mild adjacent soft tissue swelling, heterogeneous sclerosis and no retropulsed fragments, age-indeterminate. No definite extension through the posterior cortex. Mild endplate compression fracture at T10, also with a chronic appearance. No high-grade compression fracture, facet dislocation or retropulsed fragments. No facet dislocation. IMPRESSION: Moderate compression fracture of the T8 vertebral body and mild compression fracture of the superior endplate of T10 with mild adjacent soft tissue swelling. No high-grade compression fracture or retropulsed fragments. ACT 112: Positive. There are findings on this examination that require communication between the performing entity and the patient following Patient Test Result Information Act ([place] ACT 112) guidelines. Electronically signed by Lindsey Allen 05-17-2025 6:13 PM Discharge Plan Visit Data Chief Complaint: Fall Stated Complaint: FALL ED Provider: Tom Garcia Discharge Problem: Rib fractures, Dementia, Fall from standing, Compression fracture of thoracic vertebra Patient Disposition: Admitted As Inpatient Condition: Fair Discharge Instructions Interventions: ED Discharge Assessment Last Done: 05/17/25 21:35 Discharge Problem: Rib fractures Qualifiers: Encounter type: initial encounter Fracture type: closed Laterality: left Q ualified Code(s): S22.42XA - Multiple fractures of ribs, left side, initial encounter for closed fracture Dementia Qualifiers: Dementia type: unspecified type Dementia severity: unspecified severity D ementia behavioral or psychological symptom: without behavioral, psychotic, or mood disturbance or anxiety Qualified Code(s): F03.90 - Unspecified dementia, unspecified severity, without behavioral disturbance, psychotic disturbance, mood disturbance, and anxiety Fall from standing Qualifiers: Encounter type: initial encounter Qualified Code(s): W19.XXXA - Unspecified fall, initial encounter Compression fracture of thoracic vertebra Qualifiers: Encounter type: initial encounter Thoracic vertebra fracture level: unspecified thoracic vertebra Qualified Code(s): S22.000A - Wedge compression fracture of unspecified thoracic vertebra, initial encounter for closed fracture
[2025-05-17] MEDS: MoRPHine SULFATE 4 MG/ML 1 ML CARP\\VIAL IV STA ×2 (16:52→19:06)
[2025-05-17] MEDS: ONDANSETRON INJ 2 MG/ML 2 ML VIAL IV STA (16:52)
[2025-05-17] MEDS: ACETAMINOPHEN 1,000 MG/100 ML VIAL IV STA (16:53)
[2025-05-17] MEDS: SODIUM CHLORIDE 0.9% 500 ML IV ONE (16:56)
--- NOTE | 2025-05-17 17:54 | CT Scan Report ---
Clinical History: Injury Technique: Axial computed tomography images were obtained of the brain without intravenous contrast. Findings: There is diffuse cerebral atrophy, within expected limits for the patient's age. Areas of decreased attenuation are seen within the periventricular white matter, likely representing chronic small vessel ischemic disease. There is no definite sign of acute or old infarction. No intracranial hemorrhage is evident. No definite mass lesion is seen on this noncontrast examination. There is no midline shift or other form of herniation. No hydrocephalus is seen. No fracture is identified. The orbits and the visualized paranasal sinuses appear unremarkable. The mastoid air cells appear clear. Impression: 1. Cerebral atrophy and chronic small vessel ischemic disease 2. Otherwise unremarkable noncontrast CT of the brain Electronically signed by Rg Mayorga 05-17-2025 5:53 PM
--- NOTE | 2025-05-17 18:14 | CT Scan Report ---
EXAMINATION: Chest CT without CLINICAL HISTORY: Fall TECHNIQUE: Contiguous axial images were obtained through the chest without the use of intravenous contrast. Sagittal and coronal reformations are supplied. FINDINGS: Motion artifact greatly degrades image quality. Moderate osseous demineralization noted. No sternal fracture. The clavicles, scapula, are morphologically unremarkable. Oblique nondisplaced fracture of the 8th and 9th posterolateral left ribs present. Mild adjacent chest wall swelling with no large hematoma. No pneumothorax. Mild hypoventilatory changes present. No hemothorax or retrosternal hematoma. Ascending aorta is enlarged, measuring approximately 3.8 cm on this noncontrast study. Heart size is enlarged. Trachea and mainstem bronchi are patent. Thoracic spine dictated under separate heading. IMPRESSION: Nondisplaced left posterolateral 8th and 9th rib fractures with mild soft tissue swelling and no pneumothorax. Electronically signed by Lindsey Allen 05-17-2025 6:13 PM
--- NOTE | 2025-05-17 18:14 | CT Scan Report ---
EXAM: CT cervical spine CLINICAL HISTORY: Tripped over her slippers fell backwards. TECHNIQUE: Contiguous axial images were obtained through the cervical spine without the use of intravenous contrast. Sagittal and coronal reformations are supplied. PRIORS: 02/13/2022 FINDINGS: Motion artifact greatly degrades image quality. Moderate osseous demineralization is noted. Lordotic straightening is noted. Mild anterolisthesis of C3 on C4, unchanged. No acute cervical spine fracture or facet dislocation. Moderate facet hypertrophic changes noted diffusely. Moderate degenerative change present at C5-C6 and C6-C7 with endplate changes, progressed. No prevertebral soft tissue swelling. Visualized trachea is patent. IMPRESSION: No CT evidence of an acute osseous abnormality. Electronically signed by Lindsey Allen 05-17-2025 6:13 PM
--- NOTE | 2025-05-17 18:14 | CT Scan Report ---
EXAMINATION: CT thoracic spine W/O con CLINICAL HISTORY: Fall, left-sided pain PRIORS: None TECHNIQUE: Contiguous axial images were obtained through the, thoracic spine without the use of intravenous contrast. Sagittal and coronal reformations are supplied. FINDINGS: Moderate osseous demineralization and kyphosis is present. A moderate compression fracture present at T8 with mild adjacent soft tissue swelling, heterogeneous sclerosis and no retropulsed fragments, age-indeterminate. No definite extension through the posterior cortex. Mild endplate compression fracture at T10, also with a chronic appearance. No high-grade compression fracture, facet dislocation or retropulsed fragments. No facet dislocation. IMPRESSION: Moderate compression fracture of the T8 vertebral body and mild compression fracture of the superior endplate of T10 with mild adjacent soft tissue swelling. No high-grade compression fracture or retropulsed fragments. ACT 112: Positive. There are findings on this examination that require communication between the performing entity and the patient following Patient Test Result Information Act ([place] ACT 112) guidelines. Electronically signed by Lindsey Allen 05-17-2025 6:13 PM
[2025-05-17] MEDS: LIDOCAINE 5% 1 PATCH TD STA (19:06)
--- NOTE | 2025-05-17 19:50 | History & Physical Report ---
Date of Service May 17, 2025 Assessment & Plan (1) Rib fractures: Plan: Assessment and plan below following discussion of case with ED provider and reviewing patient history/pertinent normal/abnormal diagnostic test results. Traumatic rib fractures secondary to fall Thoracic compression fractures chronic systolic heart failure (EF 45%, TTE 2022), patient euvolemic to dry ARF New onset anemia possibly from cutaneous bleed LUE following fall chronic LBBB valvular heart disease (moderate MR/mild TR) hypertension, slightly elevated secondary to discomfort chronic back pain secondary to lumbar radiculopathy, patient follows with [facility] pain management, outpatient [facility] Ortho referral contemplated as per . mild cognitive impairment, patient mentating well OBS Admit to MedSurg Analgesia Baseline UA, monitor creatinine response to IVF Orthopedic spine consult re: thoracic compression fracture PT OT eval DVT prophylaxis. SCDs Re: Anemia Full code Patient requesting updates from providers. Mr. Joseph Galvez, contact #[phone]. Text document was generated using [employer] voice recognition software. It may contain grammatical or spelling errors. Kindly contact undersigned for clarification of any documentation item in question. History of Present Illness Chief Complaint: Fall, left-sided chest pain/back pain Primary Care Provider: Dr. Sariah Cadet History obtained from patient, family, and records. Medical history significant for chronic systolic heart failure (EF 45%, TTE 2022), chronic LBBB, valvular heart disease (moderate MR/mild TR), hypertension, chronic back pain secondary to lumbar radiculopathy, stress/urge incontinence as per records, anxiety disorder, mild cognitive impairment as per records. Last confinement February 2023 for left leg pain. Incidental finding of new LBBB on EKG. Patient fell at home after tripping on her slippers this morning. Patient landed on her left side/left arm. Bruising noted on left arm. Pleuritic left-sided chest and back pain without radiation. No hemoptysis. No head trauma/LOC. Intractable discomfort at the ER. 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 Allergies Allergy/AdvReac Type Severity Reaction Status Date / Time oxycodone AdvReac Intermediate Hallucinati Verified 05/17/25 20:24 ng Home Medications Medication Instructions Recorded Confirmed Type amlodipine 2.5 mg tablet 2.5 mg PO PM 05/25/20 05/17/25 History tramadol 50 mg tablet 50 mg PO Q12H PRN pain #12 tabs 06/18/24 05/17/25 Rx aspirin 325 mg tablet 650 mg PO DAILY PRN Pain 05/17/25 05/17/25 History cranberry fruit concentrate 250 mg 250 mg PO DAILY 05/17/25 05/17/25 History chewable tablet (Azo Cranberry) syscujumk-RYC-EU-acetaminophen 7.5 15 ml PO HS PRN Sleep 05/17/25 05/17/25 History mg-60 [id number]/30mL oral liqd gabapentin 300 mg capsule 300 mg PO HS 05/17/25 05/17/25 History Past Med/Surg History Problem List (Updated 05/17/25 @ 23:02 by Joaquim Montemayor MD) Rib fractures Cardiomyopathy Pericardial effusion Abnormal EKG (Acute) Dementia 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 Left leg pain (Acute) Anxiety (Acute) Hypertension (Chronic) Altered mental status (Acute) Near syncope (Acute) Medical History Chest pain ST segment depression Varicose veins of both lower extremities Osteoporosis Diverticulosis Skin cancer Social History Smoking Status: Never smoker Hx Alcohol Use: No Hx Substance Use: No Preferred Language: Japanese Communication Ability: Effective Electrician Control Equipment Required: No Beliefs That Will Affect Care: Islam Current Living Situation: Spouse Feels Safe at Home: Yes Assistive Devices: Glasses Review of Systems Review of Systems: As per HPI, all other systems reviewed and negative Physical Exam Physical Exam: GENERAL: uncomfortable, pleasant, no respiratory distress SKIN: Normal color, warm HEENT: Bespectacled, pink palpebral conjunctivae, no ptosis, dry buccal mucosa NECK : Supple, no tenderness CHEST : Decreased breath sounds, left chest wall tenderness HEART : RRR, no obvious murmurs ABDOMEN:no distention, nontender EXTREMITIES : No LE swelling/tenderness, palpable pulses, no other conspicuous deformities noted NEUROLOGIC : Coherent, no facial asymmetry, no other gross focality Results & Data Results & Data Vital Signs (Past 12 Hours) Vital Signs Temp Pulse Resp BP Pulse Ox O2 Del Method 05/17/25 19:12 72 15 98 05/17/25 19:00 148/84 H 05/17/25 18:42 71 17 97 05/17/25 18:40 163/81 H 05/17/25 18:40 69 19 163/81 H 96 05/17/25 18:30 67 19 163/81 H 97 Room Air 05/17/25 18:29 65 05/17/25 15:21 36.7 C 79 18 138/79 96 Room Air Laboratory Results Laboratory Results WBC 6.77 K/ul (4.8-10.8) 05/17/25 15:42 RBC 3.44 M/uL (4.20-5.40) L 05/17/25 15:42 Hgb 11.6 g/dl (12.0-16.0) L 05/17/25 15:42 Hct 34.9 % (37.0-47.0) L 05/17/25 15:42 MCV 101.5 fL (80.0-100.0) H 05/17/25 15:42 MCH 33.7 pg (25.0-34.0) 05/17/25 15:42 MCHC 33.2 g/dL (32.0-36.0) 05/17/25 15:42 RDW Std Deviation 51.5 fL (36.4-46.3) H 05/17/25 15:42 RDW Coeff of Yoav 13.8 % (11.5-14.5) 05/17/25 15:42 Plt Count 189 K/uL (130-400) 05/17/25 15:42 MPV 10.0 fL (9.4-12.4) 05/17/25 15:42 Immature Gran % (Auto) 0.4 % 05/17/25 15:42 Neut % (Auto) 71.4 % 05/17/25 15:42 Lymph % (Auto) 15.1 % 05/17/25 15:42 Brooke % (Auto) 9.7 % 05/17/25 15:42 Eos % (Auto) 2.8 % 05/17/25 15:42 Baso % (Auto) 0.6 % 05/17/25 15:42 Neut # (Auto) 4.83 K/uL (1.40-6.50) 05/17/25 15:42 Lymph # (Auto) 1.02 K/uL (1.20-3.40) L 05/17/25 15:42 Brooke # (Auto) 0.66 K/uL (0.11-0.59) H 05/17/25 15:42 Eos # (Auto) 0.19 K/uL (0.00-0.50) 05/17/25 15:42 Baso # (Auto) 0.04 K/uL (0.00-0.20) 05/17/25 15:42 Immature Gran # (Auto) 0.03 K/uL (0.01-0.20) 05/17/25 15:42 Sodium 137 mmol/L (136-145) 05/17/25 15:42 Potassium 4.1 mmol/L (3.5-5.1) 05/17/25 15:42 Chloride 101 mmol/L (98-107) 05/17/25 15:42 Carbon Dioxide 28 mmol/L (21-32) 05/17/25 15:42 Anion Gap 8 (3-11) 05/17/25 15:42 BUN 30 mg/dl (6-23) H 05/17/25 15:42 Creatinine 1.47 mg/dl (0.6-1.2) H 05/17/25 15:42 Est Cr Clr Drug Dosing Not Reportable 05/17/25 15:42 eGFR 36.09 05/17/25 15:42 BUN/Creatinine Ratio 20.4 (10-20) H 05/17/25 15:42 Glucose 96 mg/dl (70-99(Fasting)) 05/17/25 15:42 Calcium 9.5 mg/dl (8.6-10.3) 05/17/25 15:42 Magnesium 2.0 mg/dl (1.7-2.4) 05/17/25 15:42 Total Bilirubin 0.4 mg/dl (0.2-1.0) 05/17/25 15:42 AST 19 U/L (13-39) 05/17/25 15:42 ALT 10 U/L (7-52) 05/17/25 15:42 Alkaline Phosphatase 100 U/L (34-104) 05/17/25 15:42 Total Protein 7.2 gm/dl (6.0-8.3) 05/17/25 15:42 Albumin 4.1 gm/dl (3.4-5.0) 05/17/25 15:42 Globulin 3.1 gm/dl (2.5-4.0) 05/17/25 15:42 Albumin/Globulin Ratio 1.3 (0.9-2) 05/17/25 15:42 Impressions Chest X-Ray 05/17/25 15:32 Technique: A frontal view of the chest was obtained Comparison is made to the prior examination dated 03/15/2023 Findings: There are mild bilateral lung base opacities, likely due to atelectasis. The heart size is within normal limits. No pleural effusion or pneumothorax is seen. There is a possible right upper lobe nodule and there are irregular nodular opacities in the lung apices There is an old healed fracture of the right seventh rib and there are additional suspected old left rib fractures Impression: 1. Bilateral lung base atelectasis 2. Suspected pulmonary nodules, indeterminate in nature. Chest CT could be considered for further evaluation ACT 112: Positive. There are findings on this exam that require communication between the performing entity and the patient following Patient Test Result Information Act ([place] ACT 112) guidelines. Electronically signed by Rg Mayorga 05-17-2025 4:[address] 05/17/25 16:41 EXAM: CT cervical spine CLINICAL HISTORY: Tripped over her slippers fell backwards. TECHNIQUE: Contiguous axial images were obtained through the cervical spine without the use of intravenous contrast. Sagittal and coronal reformations are supplied. PRIORS: 02/13/2022 FINDINGS: Motion artifact greatly degrades image quality. Moderate osseous demineralization is noted. Lordotic straightening is noted. Mild anterolisthesis of C3 on C4, unchanged. No acute cervical spine fracture or facet dislocation. Moderate facet hypertrophic changes noted diffusely. Moderate degenerative change present at C5-C6 and C6-C7 with endplate changes, progressed. No prevertebral soft tissue swelling. Visualized trachea is patent. IMPRESSION: No CT evidence of an acute osseous abnormality. Electronically signed by Lindsey Allen 05-17-2025 6:[address] 05/17/25 16:41 EXAMINATION: Chest CT without CLINICAL HISTORY: Fall TECHNIQUE: Contiguous axial images were obtained through the chest without the use of intravenous contrast. Sagittal and coronal reformations are supplied. FINDINGS: Motion artifact greatly degrades image quality. Moderate osseous demineralization noted. No sternal fracture. The clavicles, scapula, are morphologically unremarkable. Oblique nondisplaced fracture of the 8th and 9th posterolateral left ribs present. Mild adjacent chest wall swelling with no large hematoma. No pneumothorax. Mild hypoventilatory changes present. No hemothorax or retrosternal hematoma. Ascending aorta is enlarged, measuring approximately 3.8 cm on this noncontrast study. Heart size is enlarged. Trachea and mainstem bronchi are patent. Thoracic spine dictated under separate heading. IMPRESSION: Nondisplaced left posterolateral 8th and 9th rib fractures with mild soft tissue swelling and no pneumothorax. Electronically signed by Lindsey Allen 05-17-2025 6:[address] 05/17/25 16:41 Clinical History: Injury Technique: Axial computed tomography images were obtained of the brain without intravenous contrast. Findings: There is diffuse cerebral atrophy, within expected limits for the patient's age. Areas of decreased attenuation are seen within the periventricular white matter, likely representing chronic small vessel ischemic disease. There is no definite sign of acute or old infarction. No intracranial hemorrhage is evident. No definite mass lesion is seen on this noncontrast examination. There is no midline shift or other form of herniation. No hydrocephalus is seen. No fracture is identified. The orbits and the visualized paranasal sinuses appear unremarkable. The mastoid air cells appear clear. Impression: 1. Cerebral atrophy and chronic small vessel ischemic disease 2. Otherwise unremarkable noncontrast CT of the brain Electronically signed by Rg Mayorga 05-17-2025 5:[address] 05/17/25 16:41 EXAMINATION: CT thoracic spine W/O con CLINICAL HISTORY: Fall, left-sided pain PRIORS: None TECHNIQUE: Contiguous axial images were obtained through the, thoracic spine without the use of intravenous contrast. Sagittal and coronal reformations are supplied. FINDINGS: Moderate osseous demineralization and kyphosis is present. A moderate compression fracture present at T8 with mild adjacent soft tissue swelling, heterogeneous sclerosis and no retropulsed fragments, age-indeterminate. No definite extension through the posterior cortex. Mild endplate compression fracture at T10, also with a chronic appearance. No high-grade compression fracture, facet dislocation or retropulsed fragments. No facet dislocation. IMPRESSION: Moderate compression fracture of the T8 vertebral body and mild compression fracture of the superior endplate of T10 with mild adjacent soft tissue swelling. No high-grade compression fracture or retropulsed fragments. ACT 112: Positive. There are findings on this examination that require communication between the performing entity and the patient following Patient Test Result Information Act ([place] ACT 112) guidelines. Electronically signed by Lindsey Allen 05-17-2025 6:13 PM Diagnostic Findings EKG as per my interpretation :
[2025-05-17] MEDS ORDERED: ACETAMINOPHEN 325 MG TAB PO PRN (19:51)
[2025-05-17] MEDS ORDERED: PROMETHAZINE 6.25 MG/50.25 ML BAG IV PRN (19:51)
[2025-05-17] MEDS: REMOVE LIDODERM PATCH SCH (20:01)
[2025-05-17] MEDS: HYDROCODONE/ACETAMOPHEN 5/325MG TAB PO PRN (21:07)
[2025-05-17] MEDS: GABAPENTIN 300 MG CAP PO ONE (21:08)
[2025-05-17] MEDS: SODIUM CHLORIDE 0.9% 1,000 ML IV ONE (21:09)
[2025-05-17] MEDS: HYDROmorphone INJ 0.5 MG/0.5 ML SYR IV PRN (21:38)
[2025-05-17] MEDS: MELATONIN 3 MG TAB PO PRN (23:25)
[2025-05-18] MEDS: ACETAMINOPHEN 325 MG TAB PO PRN (05:33)
[2025-05-18 07:40] LABS: Appearance Urine Clear (Clear); Glucose Urine UA Negative (Negative)
[2025-05-18 08:05] VITALS: RESP 18; TEMP 97.3
[2025-05-18 08:09] LABS: Hematocrit (blood only) 31.3 % (37.0-47.0); Hemoglobin 10.2 g/dl (12.0-16.0); Immature Granulocytes # (auto) 0.03 K/uL (0.01-0.20); Immature Granulocytes % (auto) 0.5 %; Mean Corpuscular Hemoglobin 32.9 pg (25.0-34.0); Mean Corpuscular Volume 101.0 fL (80.0-100.0); Platelet Count 169 K/uL (130-400); RDW Standard Deviation 50.9 fL (36.4-46.3); Red Blood Count 3.10 M/uL (4.20-5.40); White Blood Count 6.27 K/ul (4.8-10.8)
[2025-05-18 08:28] LABS: Anion Gap 4.0 (3-11); Blood Urea Nitrogen 23.0 mg/dl (6-23); Calcium 8.6 mg/dl (8.6-10.3); Carbon Dioxide 28.0 mmol/L (21-32); Chloride 103.0 mmol/L (98-107); Creatinine Clr Calc Pharmacy 61.5 ml/min; Glucose 111.0 mg/dl (70-99(Fasting)); Potassium 3.7 mmol/L (3.5-5.1); Sodium 135.0 mmol/L (136-145)
--- NOTE | 2025-05-18 09:55 | Consultation ---
Date of Consultation May 18, 2025 Assessment & Plan (1) Compression fracture of thoracic vertebra: Patient has acute T8 and T10 thoracic compression fracture status post fall. I will not order a rigid brace due to her rib fractures which is the site of most of her pain currently. She may wear her elastic brace across the thoracic region for comfort. Ambulate ad danny. No lifting over 5 to 10 pounds. Will sign off. She can follow-up in our office in 1 to 2 weeks. (2) Rib fractures: History of Present Illness Reason for Consultation: Thoracic compression fracture status post fall Attending Physician: Kirsten Sprague MD History of Present Illness Is a pleasant 79-year-old female who is a poor historian. Most of history is obtained from chart review. She believes she fell yesterday while walking her dog. Chart reports she fell over her slippers. She reports of left-sided rib pain. States she ambulates independently at home. She does have an elastic brace that she wears at home as well. Allergies Allergy/AdvReac Type Severity Reaction Status Date / Time oxycodone AdvReac Intermediate Hallucinati Verified 05/17/25 20:24 Home Medications Medication Instructions Recorded Confirmed Type amlodipine 2.5 mg tablet 2.5 mg PO PM 05/25/20 05/17/25 History tramadol 50 mg tablet 50 mg PO Q12H PRN pain #12 tabs 06/18/24 05/17/25 Rx aspirin 325 mg tablet 650 mg PO DAILY PRN Pain 05/17/25 05/17/25 History cranberry fruit concentrate 250 mg 250 mg PO DAILY 05/17/25 05/17/25 History chewable tablet (Azo Cranberry) yayrwnowe-CDC-PC-acetaminophen 7.5 15 ml PO HS PRN Sleep 05/17/25 05/17/25 History mg-60 [id number]-[id number]/30mL oral liqd gabapentin 300 mg capsule 300 mg PO HS 05/17/25 05/17/25 History hydrocodone 5 mg-acetaminophen 325 1 tab PO QID PRN pain #12 tabs 05/18/25 Rx mg tablet Patient History Medical History Chest pain ST segment depression Varicose veins of both lower extremities Osteoporosis Diverticulosis Skin cancer Social History Smoking Status: Never smoker Second Hand Exposure: No; Do You Dip or Chew Tobacco: No; Tobacco Cessation Education Requested by Patient: No Hx Alcohol Use: No Hx Substance Use: No Preferred Language: Kiswahili Communication Ability: Effective Glue Jointer Feeder Required: No Beliefs That Will Affect Care: Denominational Denominational Beliefs: Latter-Day. Current Living Situation: Spouse Other Information That Helps Us Care for You: No Feels Safe at Home: Yes Safety Concerns: Feels Safe At This Time Assistive Devices: Glasses Assistive Devices Comment: Oxygen just started on admission. Patient does not use at home. Review of Systems Review of Systems: All systems reviewed & are unremarkable except as noted in HPI & below Physical Exam Physical Exam: Alert but confused Cooperative with exam tenderness to palpation over the midline mid thoracic region No palpable step-offs Strength intact bilateral lower extremities Results & Data Vital Signs (Past 12 Hours) Vital Signs Temp Pulse Resp BP Pulse Ox O2 Del Method O2 Flow Rate 05/18/25 07:15 36.3 C L 62 18 135/76 99 Nasal Cannula 2 05/17/25 22:00 Nasal Cannula 2 05/17/25 22:00 36.5 C 75 16 169/78 H 95 Nasal Cannula 2 05/17/25 22:00 Nasal Cannula 2 05/17/25 22:00 36.5 C 75 16 169/78 H 95 Nasal Cannula 2 Diagnostic [place] [phone] CT Scan Report Patient: BRIAN FERREIRA Admit Date: 05/17/25 MR#: [id number] Address1: [address] [place] [address] Acct ID:[id number] Address2: [address] Date: 1945 [facility] Zip: [place] [address] Age: 79 Location: ED Sex: F Room/Bed: Att Phy: Diagnosis: FALL Roselyn Phy: Tamara Nieto PA-C Service Date: 05/17/25 Fam Phy: Interpreting Phy: Lindsey Allen MDAdmit Phy: Ordering Phy: Tom Garcia M.D. cc: ~ EXAMINATION: CT thoracic spine W/O con CLINICAL HISTORY: Fall, left-sided pain PRIORS: None TECHNIQUE: Contiguous axial images were obtained through the, thoracic spine without the use of intravenous contrast. Sagittal and coronal reformations are supplied. FINDINGS: Moderate osseous demineralization and kyphosis is present. A moderate compression fracture present at T8 with mild adjacent soft tissue swelling, heterogeneous sclerosis and no retropulsed fragments, age-indeterminate. No definite extension through the posterior cortex. Mild endplate compression fracture at T10, also with a chronic appearance. No high-grade compression fracture, facet dislocation or retropulsed fragments. No facet dislocation. IMPRESSION: Moderate compression fracture of the T8 vertebral body and mild compression fracture of the superior endplate of T10 with mild adjacent soft tissue swelling. No high-grade compression fracture or retropulsed fragments. ACT 112: Positive. There are findings on this examination that require communication between the performing entity and the patient following Patient Test Result Information Act ([place] ACT 112) guidelines. Electronically signed by Lindsey Allen 05-17-2025 6:13 PM Dictated: 05/17/25 1737 Transcribed: [place] [phone] CT Scan Report Patient: BRIAN FERREIRA Admit Date: 05/17/25 MR#: [id number] Address1: [address] [place] [address] Acct ID:[id number] Address2: [address] Date: 1945 [facility] Zip: [place] [address] Age: 79 Location: ED Sex: F Room/Bed: Att Phy: Diagnosis: FALL Roselyn Phy: Tamara Nieto PA-C Service Date: 05/17/25 [facility] Phy: Interpreting Phy: Lindsey Allen MDAdmit Phy: Ordering Phy: Tom Garcia M.D. cc: ~ EXAM: CT cervical spine CLINICAL HISTORY: Tripped over her slippers fell backwards. TECHNIQUE: Contiguous axial images were obtained through the cervical spine without the use of intravenous contrast. Sagittal and coronal reformations are supplied. PRIORS: 02/13/2022 FINDINGS: Motion artifact greatly degrades image quality. Moderate osseous demineralization is noted. Lordotic straightening is noted. Mild anterolisthesis of C3 on C4, unchanged. No acute cervical spine fracture or facet dislocation. Moderate facet hypertrophic changes noted diffusely. Moderate degenerative change present at C5-C6 and C6-C7 with endplate changes, progressed. No prevertebral soft tissue swelling. Visualized trachea is patent. IMPRESSION: No CT evidence of an acute osseous abnormality. Electronically signed by Lindsey Allen 05-17-2025 6:13 PM Dictated: 05/17/251730 [facility]cribed: [facility] [phone] CT Scan Report Patient: BRIAN FERREIRA Admit Date: 05/17/25 MR#: [id number] Address1: [address] [facility] [facility] Acct ID:[id number] Address2: [address] Date: 1945 [facility] Zip: [place] [address] Age: 79 Location: ED Sex: F Room/Bed: Att Phy: Diagnosis: FALL Roselyn Phy: Tamara Nieto PA-C Service Date: 05/17/25 Fam Phy: Interpreting Phy: Lindsey Allen MDAdmit Phy: Ordering Phy: Tom Garcia M.D. cc: ~ EXAMINATION: Chest CT without CLINICAL HISTORY: Fall TECHNIQUE: Contiguous axial images were obtained through the chest without the use of intravenous contrast. Sagittal and coronal reformations are supplied. FINDINGS: Motion artifact greatly degrades image quality. Moderate osseous demineralization noted. No sternal fracture. The clavicles, scapula, are morphologically unremarkable. Oblique nondisplaced fracture of the 8th and 9th posterolateral left ribs present. Mild adjacent chest wall swelling with no large hematoma. No pneumothorax. Mild hypoventilatory changes present. No hemothorax or retrosternal hematoma. Ascending aorta is enlarged, measuring approximately 3.8 cm on this noncontrast study. Heart size is enlarged. Trachea and mainstem bronchi are patent. Thoracic spine dictated under separate heading. IMPRESSION: Nondisplaced left posterolateral 8th and 9th rib fractures with mild soft tissue swelling and no pneumothorax. Electronically signed by Lindsey Allen 05-17-2025 6:13 PM Dictated: 05/17/251730 Transcribed: (1) Compression fracture of thoracic vertebra Encounter type: initial encounter Thoracic vertebra fracture level: unspecified thoracic vertebra Qualified Code(s): S22.000A - Wedge compression fracture of unspecified thoracic vertebra, initial encounter for closed fracture (2) Rib fractures Encounter type: initial encounter Fracture type: closed Laterality: left Qualified Code(s): S22.42XA - Multiple fractures of ribs, left side, initial encounter for closed fracture
[2025-05-18] MEDS: REMOVE LIDODERM PATCH SCH (12:39)
--- NOTE | 2025-05-18 14:51 | Hospitalist Progress Note ---
Date of Service May 18, 2025 Assessment & Plan (1) Rib fractures: Plan: Assessment and plan below following discussion of case with ED provider and reviewing patient history/pertinent normal/abnormal diagnostic test results. Traumatic rib fractures secondary to fall- involving left posterolateral 8 and ninth ribs without any associated pneumothorax Thoracic compression fracturesmoderate compression fracture of the T8 vertebral body and mild compression fracture of the superior endplate of T10 Chronic back pain secondary to lumbar radiculopathy, patient follows with [facility] pain management, outpatient [facility] Ortho referral contemplated as per . Appreciate Ortho input and recommendationuse of elastic brace for comfort, no lifting over 5 to 10 pounds and with the follow-up in 1 to 2 weeks Has been getting narcotic pain medications as needed to control pain Has had physical therapy and recommended can be discharged 24-hour supervision at home theater manager will be arranging home health nurse plus outpatient physical therapy Discussed with the patient and the family members in detail Desaturation Has been requiring 2 L of oxygen to maintain saturation Decreased respiration due to pain from the rib fracture No history of fluid overload and/or infection Will get to 8 steps O2 saturation prior to discharge Chronic systolic heart failure (EF 45%, TTE 2022), patient euvolemic to dry No shortness of breath at rest and no signs or symptoms of fluid overload ARF Kidney function has been normalized Other significant medical conditions remained stable as below: New onset anemia possibly from cutaneous bleed LUE following fall Chronic LBBB Valvular heart disease (moderate MR/mild TR) hypertension, slightly elevated secondary to discomfort Mild cognitive impairment, patient mentating well DVT prophylaxis. SCDs Re: Anemia Full code Patient requesting updates from providers. Mr. Joseph Galvez, contact #[phone]. Text document was generated using [employer] voice recognition software. It may contain grammatical or spelling errors. Kindly contact undersigned for clarification of any documentation item in question. Admission and Anticipated Discharge Date Admission Date: May 17, 2025 Subjective 05/18/2025 The patient was seen and examined in medical floor in presence of the family members She has been complaining of pain in the chest wall and also at the back She has been requiring 2 L to maintain saturation Review of Systems Review of Systems: All systems reviewed and are unremarkable except as noted below Physical Exam Physical Exam: Lying in bed with distress due to chest pain with breathing Constitutional: + ill appearing and average body habitus Eyes: PERRL, conjunctivae normal, anicteric sclerae ENMT: external ear and nose normal, oropharynx normal Neck: trachea midline, no thyromegaly Respiratory: no respiratory distress Auscultation: + diminished lung sounds ; no crackles Cardiovascular: Rate/Rhythm: regular rate and regular rhythm; not tachycardic Heart Sounds: normal S1 and normal S2; no murmur Extremities: no edema Gastrointestinal (Abdomen): Inspection/Auscultation: normal bowel sounds; a bdomen not distended Percussion/Palpation: abdomen soft; abdomen nontender Musculoskeletal: Pain and tenderness involving the left lateral chest wall and also pain at the upper back with movement Neurologic: normal touch/pain/proprioception and moves all extremities; no focal motor deficits Lymphatic: no cervical or axillary lymphadenopathy Results & Data Results & Data Vital Signs (Past 12 Hours) Vital Signs Temp Pulse Resp BP Pulse Ox O2 Del Method O2 Flow Rate 05/18/25 10:44 92 Nasal Cannula 2 05/18/25 10:43 86 L Room Air 05/18/25 08:30 Room Air 05/18/25 07:15 36.3 C L 62 18 135/76 99 Nasal Cannula 2 Laboratory Results Short CBC 05/17/25 05/18/25 Range/Units 15:42 07:40 WBC 6.77 6.27 (4.8-10.8) K/ul Hgb 11.6 L 10.2 L (12.0-16.0) g/dl Hct 34.9 L 31.3 L (37.0-47.0) % Plt Count 189 169 (130-400) K/uL BMP 05/17/25 05/18/25 15:42 07:40 Sodium 137 135 L Potassium 4.1 3.7 Chloride 101 103 Carbon Dioxide 28 28 BUN 30 H 23 Creatinine 1.47 H 1.01 D Glucose 96 111 H Calcium 9.5 8.6 Liver Function 05/17/25 Range/Units 15:42 Total Bilirubin 0.4 (0.2-1.0) mg/dl AST 19 (13-39) U/L ALT 10 (7-52) U/L Alkaline Phosphatase 100 (34-104) U/L Albumin 4.1 (3.4-5.0) gm/dl Urine 05/18/25 Range/Units 06:35 Urine Color Yellow Urine Appearance Clear (Clear) Urine pH 6.0 (4.5-7.5) Ur Specific [place] 1.015 (1.000-1.030) Urine Protein Negative (Negative) Urine Glucose (UA) Negative (Negative) Medications Administered Current Inpatient Medications Acetaminophen (Acetaminophen 325 Mg Tab) 325 mg PO QID PRN PRN Reason: pain/fever Stop: 06/16/25 19:50 Last Admin: 05/18/25 05:33 Dose: 325 mg Hydrocodone Bitart/Acetaminophen (Hydrocodone/Acetamophen 5/325mg Tab) 1 tab PO QID PRN PRN Reason: Pain Stop: 05/31/25 20:28 Last Admin: 05/18/25 10:40 Dose: 1 tab Amlodipine Besylate (Amlodipine Besylate 5 Mg Tab) 2.5 mg PO PM OLGA Stop: 06/17/25 20:59 Gabapentin (Gabapentin 300 Mg Cap) 300 mg PO HS OLGA Stop: 06/17/25 20:59 Hydromorphone HCl (Hydromorphone Inj 0.5 Mg/0.5 Ml Syr) 0.25 mg IV Q4H PRN PRN Reason: Pain Stop: 05/31/25 20:28 Last Admin: 05/18/25 12:02 Dose: 0.25 mg Hydroxyzine HCl (Hydroxyzine Hcl 10 Mg Tab) 10 mg PO QID PRN PRN Reason: Anxiety Stop: 06/16/25 20:33 Last Admin: 05/18/25 01:45 Dose: 10 mg Promethazine HCl (Phenergan) 6.25 mg in 50.25 mls @ 201 mls/hr IV Q6H PRN PRN Reason: Nausea And Vomiting Stop: 06/16/25 19:50 Melatonin (Melatonin 3 Mg Tab) 3 mg PO HS PRN PRN Reason: Sleep Stop: 06/16/25 20:33 Last Admin: 05/17/25 23:25 Dose: 3 mg (1) Rib fractures Encounter type: initial encounter Fracture type: closed Laterality: left Qualified Code(s): S22.42XA - Multiple fractures of ribs, left side, initial encounter for closed fracture
[2025-05-18 15:43] VITALS: BP 133/70; PULSE 77
[2025-05-18 15:55] VITALS: O2SAT 100
[2025-05-18] MEDS ORDERED: GABAPENTIN 300 MG CAP PO SCH (21:00)
--- NOTE | 2025-05-19 07:12 | Discharge Summary ---
Date of Service May 19, 2025 Admission HPI Per Admitting Provider History obtained from patient, family, and records. Medical history significant for chronic systolic heart failure (EF 45%, TTE 2022), chronic LBBB, valvular heart disease (moderate MR/mild TR), hypertension, chronic back pain secondary to lumbar radiculopathy, stress/urge incontinence as per records, anxiety disorder, mild cognitive impairment as per records. Last confinement February 2023 for left leg pain. Incidental finding of new LBBB on EKG. Patient fell at home after tripping on her slippers this morning. Patient landed on her left side/left arm. Bruising noted on left arm. Pleuritic left-sided chest and back pain without radiation. No hemoptysis. No head trauma/LOC. Intractable discomfort at the ER. 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 Admission Exam Per Admitting Provider Physical Exam: GENERAL: uncomfortable, pleasant, no respiratory distress SKIN: Normal color, warm HEENT: Bespectacled, pink palpebral conjunctivae, no ptosis, dry buccal mucosa NECK : Supple, no tenderness CHEST : Decreased breath sounds, left chest wall tenderness HEART : RRR, no obvious murmurs ABDOMEN:no distention, nontender EXTREMITIES : No LE swelling/tenderness, palpable pulses, no other conspicuous deformities noted NEUROLOGIC : Coherent, no facial asymmetry, no other gross focality Principal Diagnosis Fall with status post refracture and thoracic compression fracture, desaturation requiring oxygen with activity Discharge Exam Lying in bed with distress due to chest pain with breathing Constitutional + ill appearing and average body habitus Eyes PERRL, conjunctivae normal, anicteric sclerae ENMT external ear and nose normal, oropharynx normal Neck trachea midline, no thyromegaly Respiratory no respiratory distress Auscultation: + diminished lung sounds; no crackles Cardiovascular Rate/Rhythm: regular rate and regular rhythm; not tachycardic Heart Sounds: normal S1 and normal S2; no murmur Extremities: no edema Gastrointestinal (Abdomen) Inspection/Auscultation: normal bowel sounds; abdomen not distended Percussion/Palpation: abdomen soft; abdomen nontender Neurologic normal touch/pain/proprioception and moves all extremities; no focal motor deficits Lymphatic no cervical or axillary lymphadenopathy Discharge Data Allergies Allergy/AdvReac Type Severity Reaction Status Date / Time oxycodone AdvReac Intermediate Hallucinati Verified 05/17/25 20:24 ng Consultations 05/17/25 19:39 ED Decision to Admit Stat 05/17/25 22:03 Consult Orthopedic Spine Surgery Routine Ordered Studies 05/17/25 16:41 CT cervical spine wo con Stat CT chest diagnostic wo con Stat CT head/brain wo con Stat CT thoracic spine wo con Stat Hospital Course (1) Rib fractures: Assessment and plan below following discussion of case with ED provider and reviewing patient history/pertinent normal/abnormal diagnostic test results. Traumatic rib fractures secondary to fall- involving left posterolateral 8 and ninth ribs without any associated pneumothorax Thoracic compression fracturesmoderate compression fracture of the T8 vertebral body and mild compression fracture of the superior endplate of T10 Chronic back pain secondary to lumbar radiculopathy, patient follows with [facility] management, outpatient [facility] Ortho referral contemplated as per . Appreciate Ortho input and recommendationuse of elastic brace for comfort, no lifting over 5 to 10 pounds and with the follow-up in 1 to 2 weeks Has been getting narcotic pain medications as needed to control pain Has had physical therapy and recommended can be discharged 24-hour supervision at home electrical manager will be arranging home health nurse plus outpatient physical therapy Discussed with the patient and the family members in detail Desaturation Has been requiring 2 L of oxygen to maintain saturation Decreased respiration due to pain from the rib fracture No history of fluid overload and/or infection Will get to 8 steps O2 saturation prior to discharge Chronic systolic heart failure (EF 45%, TTE 2022), patient euvolemic to dry No shortness of breath at rest and no signs or symptoms of fluid overload ARF Kidney function has been normalized Other significant medical conditions remained stable as below: New onset anemia possibly from cutaneous bleed LUE following fall Chronic LBBB Valvular heart disease (moderate MR/mild TR) hypertension, slightly elevated secondary to discomfort Mild cognitive impairment, patient mentating well DVT prophylaxis. SCDs Re: Anemia Full code Patient requesting updates from providers. Mr. Joseph Galvez, contact #[phone]. Text document was generated using [employer] voice recognition software. It may contain grammatical or spelling errors. Kindly contact undersigned for clarification of any documentation item in question. Total Time Total Time Spent Total Time Spent (In Minutes): 35 Minutes Discharge Plan Discharge Items Patient Disposition: Home - Home Health Services Reason For Visit: RIB FXS Discharge Diagnosis: Fall with status post refracture and thoracic compression fracture, desaturation requiring oxygen with activity Condition on Discharge: Fair Activity: Resume your previous activity Non-emergency contact: Primary Care Provider Call non-emergency contact if: you have any medication questions and your symptoms worsen Follow-up/Referrals: Rivera Fofana, [Surgeon] - Tamara Nieto, RAEGAN [Primary Care Provider] - (Date & Time 05/26/2025 12:40 PM Provider: Sariah Cadet MD [facility] ) Diet: Heart Healthy Addtl Attending Provider Instructions: Please take precautions to avoid falls Please try to use less of narcotic pain medications to avoid confusion, constipation and addiction Your doctor's office will call you with an appointment for follow-up Do not use hydrocodone while you are using tramadol Please keep appointments with your healthcare providers Pending Studies at Discharge: No Stand-Alone Forms: My [facility] [email or web address], Smoking Cessation Medications and DC Order Prescriptions: New hydrocodone-acetaminophen 5-325 mg Tablet 1 tab PO QID PRN (Reason: pain) Qty: 12 0RF Continued amlodipine 2.5 mg tablet 2.5 mg PO PM tramadol 50 mg tablet 50 mg PO Q12H PRN (Reason: pain) Qty: 12 0RF aspirin 325 mg Tablet 650 mg PO DAILY PRN (Reason: Pain) toamlzlpr-URH-MW-acetaminophen 7.5-60-30-1,000 mg/30 mL Liquid 15 ml PO HS PRN (Reason: Sleep) gabapentin 300 mg capsule 300 mg PO HS Azo Cranberry 250 mg Tablet,Chewable 250 mg PO DAILY Admission Data Admit Date/Time: 05/17/25 20:31 Attending Provider: Kirsten Sprague Admit Provider: Joaquim Montemayor Primary Care Provider: Tamara Nieto Other Providers: Joaquim Montemayor; Rivera Fofana Other Interventions: Discharge Summary Assessment (RN) Last Done: 05/18/25 17:00
--- NOTE | 2025-05-22 06:01 | Electrocardiogram Report ---
Test Reason : Blood Pressure : */* mmHG Vent. Rate : 86 BPM Atrial Rate : 86 BPM P-R Int : 132 ms QRS Dur : 128 ms QT Int : 394 ms P-R-T Axes : 66 -45 115 degrees QTcB Int : 471 ms Poor data quality, interpretation may be adversely affected Normal sinus rhythm with sinus arrhythmia Left ventricular hypertrophy Left bundle branch block Abnormal ECG When compared with ECG of 18-Jun-2024 13:34, No significant change Confirmed by Jj Rordiguez ([id number]) on 05/22/2025 6:01:40 AM Referred By: REFERRED SELF Confirmed By: Jj Rodriguez
== END 2025-05-18 17:57 | disposition home health service (06) ==
LOC: 3N 15:14 → ED 15:14 → 3N 21:35